=== PATIENT | male | born 1930 | race Caucasian/White ===

== ENCOUNTER 2019-06-19 16:24 | Inpatient (IN) | payer MEDICARE, OTHER ==
[2019-06-19 16:49] VITALS: BMI 31.9
--- NOTE | 2019-06-19 17:44 | PDOC ---
History of Present Illness - General Chief Complaint: Injury Stated Complaint: FELL YESTERDAY Time Seen by Provider: 06/19/19 16:41 - History of Present Illness Initial Comments: 06/19/19 17:36 Occitan speaking Unwitnessed fall yesterday at home onto back - found by Denies head injury LOC chest pain prior to fall Ongoing dizziness, leg weakness No fever, URI recently Valve replacement, 6 stents, pacemaker GERD, CHF, BPH coumadin, atorvastatin NKDA BP 158/62 (no hx HTN, DM) 5/5 strength LLE abrasion R forearm post thorax conjunctival pallor "low K" at PCP EKG CXR CBC CMP FOBT T/S Cardiac profile Coags UA Urine culture CT Head CT chest CT abd/pelvis w/contrast Past History - Past Medical History Allergies/Adverse Reactions: Allergies Allergy/AdvReac Type Severity Reaction Status Date / Time No Known Allergies Allergy Verified 06/19/19 16:43 Home Medications: Ambulatory Orders Alendronate Sodium [Binosto] 70 mg PO WEEKLY 06/19/19 Atorvastatin Calcium [Lipitor] 20 mg PO HS 06/19/19 Esomeprazole Magnesium 40 mg PO DAILY 06/19/19 Furosemide [Lasix -] 60 mg PO DAILY 06/19/19 Metoprolol Tartrate [Lopressor -] 25 mg PO DAILY 06/19/19 Potassium Chloride 20 meq PO BID 06/19/19 Ranolazine [Ranexa -] 1,000 mg PO BID 06/19/19 Tamsulosin HCl [Flomax] 0.4 mg PO DAILY 06/19/19 Warfarin Na [Coumadin] 3 mg PO DAILY 06/19/19 Cardiac Disorders: Yes COPD: No GI Disorders: Yes (gerd) Disorders: Yes (enlarged prostate) - Surgical History Cardiac Surgery: Yes - Suicide/Smoking/Psychosocial Hx Smoking History: Unknown if ever smoked *Physical Exam - Vital Signs Last Vital Signs Temp Pulse Resp BP Pulse Ox 99 F 94 H 26 H 158/62 94 L 06/19/19 16:47 06/19/19 16:47 06/19/19 16:47 06/19/19 16:47 06/19/19 16:47 ED Treatment Course - LABORATORY CBC & Chemistry Diagram: 06/19/19 18:15 06/19/19 18:15 Medical Decision Making - Medical Decision Making 08/30/19 22:44 Case discussed with ARI Rojo - patient admitted to Dr. Hanley, cardiac telemetry bed. *DC/Admit/Observation/Transfer Diagnosis at time of Disposition: Elevated INR Scapula fracture Qualifiers: Encounter type: initial encounter Scapula location: unspecified part of scapula Fracture type: closed Laterality: right Qualified Code(s): S42.101A - Fracture of unspecified part of scapula, right shoulder, initial encounter for closed fracture Rib fractures Qualifiers: Encounter type: initial encounter Rib fracture type: multiple ribs Fracture type: closed Laterality: right Qualified Code(s): S22.41XA - Multiple fractures of ribs, right side, initial encounter for closed fracture Cellulitis Qualifiers: Site of cellulitis: unspecified site Qualified Code(s): L03.90 - Cellulitis, unspecified - Discharge Dispostion Condition at time of disposition: Stable Decision to Admit order: Yes - Referrals Referrals: Chip Hunt MD [Primary Care Provider] - - Patient Instructions - Post Discharge Activity
[2019-06-19 18:33] LABS: BASO % 0.3 % (0-2.0); EOS % 0.5 % (0-4.5); HEMATOCRIT 31.1 % (35.4-49); HEMOGLOBIN 10.2 GM/dL (11.7-16.9); LYMPH % 13.2 % (8-40); MCH 27.6 pg (25.7-33.7); MCHC 32.7 g/dl (32.0-35.9); MEAN CELL VOLUME 84.4 fl (80-96); MEAN PLT VOLUME 9.2 fl (7.5-11.1); MONO % 7.4 % (3.8-10.2); NEUT % 78.6 % (42.8-82.8); PLATELET COUNT 171 K/MM3 (134-434); RBC 3.68 M/mm3 (4.00-5.60); RDW 16.2 % (11.9-15.9); WHITE BLOOD COUNT 7.8 K/mm3 (4.0-10.0)
[2019-06-19] MEDS ORDERED: ACETAMINOPHEN 1000 MG/100 ML VIAL (NON FORMULARY) IVPB ONE (18:37)
[2019-06-19 18:45] LABS: VENOUS PC02 44.9 mmHg (38-52); VENOUS PH 7.44 (7.31-7.41)
[2019-06-19 18:46] LABS: ACTIVATED PTT 49.4 SECONDS (25.2-36.5)
[2019-06-19 18:50] LABS: VENOUS PO2 < 49 mmHg (28-48)
--- NOTE | 2019-06-19 18:57 | PDOC ---
Documentation entered by Delmy Krause SCRIBE, acting as scribe for Oriana Alexis MD. Oriana Alexis MD: This documentation has been prepared by the Jimi child Lincy, SCRIBE, under my direction and personally reviewed by me in its entirety. I confirm that the documentation accurately reflects all work, treatment, procedures, and medical decision making performed by me. Attending Attestation - Resident Resident Name: Janine Hanan - ED Attending Attestation I have performed the following: I have examined & evaluated the patient, The case was reviewed & discussed with the resident, I agree w/resident's findings & plan, Exceptions are as noted - HPI HPI: 06/19/19 18:50 88 yo male h/o valve replacement, pacer, cad htn , gerd chf and bph here after had a fall yesterday. pt had unwitnessed fall. per his daughter at the bedside pt had fall yesterday. stats he felt lightheaded just prior. was c/o pain on his back and left side. he was evaluated at [facility], had cxr which was reportedly negative and discharge home. since then, his daughter noted that he had left arm redness and swelling. andwas c/o sever pain right flank and left arm. , right shoulder, no change to mental status. no n/v no abd pain. left arm is red, swollen, no fever or chills. pain worse wtih movement. states he hasongoign bilat leg weakness which may have caused his fall. - Physicial Exam PE: 06/19/19 18:53 awake alert head atraumatic. lungs clear bilat heart clicking heard, no mrg. abd soft nt. right flank with large abrasion base shoulder blade superficial, right flank eccymosis. ext: right shoulder ttp, decreased rom secondary to pain. left upper ext upper arm and forearm cellulitis red, swollen,warm and edematous. pelvis stable. bilat legs atraumatic. nontender. no midline spinal tenderness. no mildlien cervical spine tenderness. - Medical Decision Making 06/19/19 18:55 88 yo male h/o mult med problesm pacer cad valve replacement on bloood thinners here for left arm pain and flank pain following fall. left arm cellulitis appearing. per pt daughter he did have an injection in that left arm [address] taylor. right flank eccymosis and pain. right lower rib pain. differnetial ich, right rib fractures, rp bleed, renal injury, left arm cellulitis.plan ct head c/a/p. will likley require admission for left arm cellulitis. cultures abx. rectal temp 98.4 06/19/19 19:14 signed out to oncoming attending dr aceves, awaiting ct results. will require admission. Heart Score/ECG Review #1 General ECG Interpretation: Normal Rate, Normal Intervals, No acute ischemic changes Compared to previous ECG there are: Other (paced, TWI III, AVF.)
[2019-06-19 18:59] LABS: PROTHROMBIN TIME (PATIENT) 61.2 SEC (9.7-13.0)
[2019-06-19] MEDS ORDERED: PIPERACILLIN/TAZOB 2.25 GM 2.25 GM in DEXTROSE 5%-WATER - 50 ML IVPB ONE (19:06)
[2019-06-19] MEDS ORDERED: VANCOMYCIN 1 GM in D5W (PRE-DOCKED) 1,000 MG/250 ML IVPB ONE (19:06)
[2019-06-19 19:07] LABS: ALBUMIN 3.2 g/dl (3.4-5.0); ALK PHOS 59 U/L (45-117); ANION GAP 6 MMOL/L (8-16); BILIRUBIN,TOTAL 0.5 mg/dL (0.2-1); CALCIUM 8.7 mg/dL (8.5-10.1); CHLORIDE 98 mmol/L (98-107); CO2 31 mmol/L (21-32); CREATININE 1.2 mg/dL (0.55-1.3); GLUCOSE,RANDOM 132 mg/dL (74-106); POTASSIUM 3.8 mmol/L (3.5-5.1); SGOT/AST 39 U/L (15-37); SGPT/ALT 20 U/L (13-61); SODIUM 136 mmol/L (136-145); TOT PROT 5.8 g/dl (6.4-8.2)
[2019-06-19 19:08] LABS: INR 5.1 (0.83-1.09)
[2019-06-19] MEDS ORDERED: PHYTONADIONE 5 MG TABLET PO ONE (19:17)
[2019-06-19] MEDS ORDERED: PIPERACILLIN/TAZOB 2.25 GM 2.25 GM/50 ML BAG IVPB ONE (19:42)
[2019-06-19] MEDS ORDERED: VANCOMYCIN 1 GRAM (PRE-DOCKED) 1,000 MG/250 ML BAG IVPB ONE (19:42)
[2019-06-19] MEDS ORDERED: PHYTONADIONE 5 MG TABLET ONE (19:45)
[2019-06-19 20:37] LABS: PH,URINE 5.5 (5.0-8.0); URINE APPEARANCE CLOUDY; URINE BILIRUBIN NEGATIVE (NEGATIVE); URINE COLOR YELLOW; URINE GLUCOSE (UA) NEGATIVE (NEGATIVE); URINE KETONE NEGATIVE (NEGATIVE); URINE LEUK ESTERASE NEGATIVE (NEGATIVE); URINE NITRITE NEGATIVE (NEGATIVE); URINE PROTEIN NEGATIVE (NEGATIVE); URINE UROBILINOGEN 0.2 mg/dL (0.2-1.0)
--- NOTE | 2019-06-19 20:44 | PDOC ---
*Physical Exam - Vital Signs Last Vital Signs Temp Pulse Resp BP Pulse Ox 98.3 F 94 H 26 H 158/62 97 06/19/19 18:00 06/19/19 16:47 06/19/19 16:47 06/19/19 16:47 06/19/19 16:49 ED Treatment Course - LABORATORY CBC & Chemistry Diagram: 06/20/19 07:00 06/20/19 07:00 - ADDITIONAL ORDERS Additional order review: Laboratory Results 06/19/19 06/19/19 06/19/19 20:15 18:23 18:15 PT with INR INR PTT (Actin FS) VBG pH 7.44 H POC VBG pCO2 44.9 POC VBG pO2 < 49 H VBG HCO3 29.6 H VBG O2 Sat (Ko) 59.4 L VBG Base Excess 5.2 H Sodium Potassium Chloride Carbon Dioxide Anion Gap BUN Creatinine Est GFR (CKD-EPI)AfAm Est GFR (CKD-EPI)NonAf Random Glucose Lactic Acid 2.1 H Calcium Total Bilirubin AST ALT Alkaline Phosphatase Creatine Kinase Creatine Kinase Index CK-MB (CK-2) Troponin I Total Protein Albumin Urine Color Yellow Urine Appearance Cloudy Urine pH 5.5 Ur Specific Tilly 1.015 Urine Protein Negative Urine Glucose (UA) Negative Urine Ketones Negative Urine Blood Negative Urine Nitrite Negative Urine Bilirubin Negative Urine Urobilinogen 0.2 Ur Leukocyte Esterase Negative Blood Type Antibody Screen 06/19/19 06/19/19 06/19/19 18:15 18:15 18:15 PT with INR Cancelled INR Cancelled PTT (Actin FS) VBG pH POC VBG pCO2 POC VBG pO2 VBG HCO3 VBG O2 Sat (Ko) VBG Base Excess Sodium 136 Potassium 3.8 Chloride 98 Carbon Dioxide 31 Anion Gap 6 L BUN 26.0 H Creatinine 1.2 Est GFR (CKD-EPI)AfAm 61.76 Est GFR (CKD-EPI)NonAf 53.29 Random Glucose 132 H Lactic Acid Calcium 8.7 Total Bilirubin 0.5 AST 39 H ALT 20 Alkaline Phosphatase 59 Creatine Kinase 421 H Creatine Kinase Index 1.4 CK-MB (CK-2) 6.2 H Troponin I < 0.02 Total Protein 5.8 L Albumin 3.2 L Urine Color Urine Appearance Urine pH Ur Specific Tilly Urine Protein Urine Glucose (UA) Urine Ketones Urine Blood Urine Nitrite Urine Bilirubin Urine Urobilinogen Ur Leukocyte Esterase Blood Type O POSITIVE Antibody Screen Negative 06/19/19 18:15 PT with INR 61.20 H INR 5.10 H* PTT (Actin FS) 49.4 H VBG pH POC VBG pCO2 POC VBG pO2 VBG HCO3 VBG O2 Sat (Ko) VBG Base Excess Sodium Potassium Chloride Carbon Dioxide Anion Gap BUN Creatinine Est GFR (CKD-EPI)AfAm Est GFR (CKD-EPI)NonAf Random Glucose Lactic Acid Calcium Total Bilirubin AST ALT Alkaline Phosphatase Creatine Kinase Creatine Kinase Index CK-MB (CK-2) Troponin I Total Protein Albumin Urine Color Urine Appearance Urine pH Ur Specific Tilly Urine Protein Urine Glucose (UA) Urine Ketones Urine Blood Urine Nitrite Urine Bilirubin Urine Urobilinogen Ur Leukocyte Esterase Blood Type Antibody Screen 06/19/19 18:15 RBC 3.68 L MCV 84.4 MCHC 32.7 RDW 16.2 H MPV 9.2 Neutrophils % 78.6 Lymphocytes % 13.2 Monocytes % 7.4 Eosinophils % 0.5 Basophils % 0.3 - Medications Given in the ED: ED Medications Discontinued Medications Generic Name Dose Route Start Last Admin Trade Name Dinoq PRN Reason Stop Dose Admin Acetaminophen 1,000 mg 06/19/19 18:37 06/19/19 18:41 Ofirmev Injection - IVPB 06/19/19 18:38 1,000 mg ONCE ONE Administration Piperacillin Sod/Tazobactam 50 mls @ 100 mls/hr 06/19/19 19:06 06/19/19 20:00 Sod 2.25 gm/ Dextrose IVPB 06/19/19 19:35 100 mls/hr ONCE ONE Administration Protocol Phytonadione 10 mg 06/19/19 19:17 06/19/19 20:00 Mephyton - PO 06/19/19 19:18 10 mg ONCE ONE Administration Medical Decision Making - Medical Decision Making 06/19/19 20:43 Pt with INR that is double what it should be; I received pt on signout and we administered Vit K PO; also head CT just came back as normal. Pt has multiple fractures from his fall a couple days back; he will be admitted. Ortho is aware. *DC/Admit/Observation/Transfer Diagnosis at time of Disposition: Elevated INR, Cellulitis Scapula fracture Qualifiers: Encounter type: initial encounter Scapula location: unspecified part of scapula Fracture type: closed Laterality: right Qualified Code(s): S42.101A - Fracture of unspecified part of scapula, right shoulder, initial encounter for closed fracture Rib fractures Qualifiers: Encounter type: initial encounter Rib fracture type: multiple ribs Fracture type: closed Laterality: right Qualified Code(s): S22.41XA - Multiple fractures of ribs, right side, initial encounter for closed fracture - Discharge Dispostion Condition at time of disposition: Stable Decision to Admit order: Yes - Referrals - Patient Instructions - Post Discharge Activity
[2019-06-19] MEDS ORDERED: morphine CARPU-JECT 2 MG/1 ML DISP.SYRIN IVPUSH ONE ×2 (21:30→22:58)
[2019-06-19] MEDS ORDERED: MORPHINE SULFATE 2 MG/ML VIAL ONE ×2 (21:54→23:12)
--- NOTE | 2019-06-19 23:24 | HP ---
Admitting History and Physical - Primary Care Physician PCP: Chip Hunt - Admission Chief Complaint: Unwitnessed Fall, Dizziness, Leg Weakness History of Present Illness: This is a 88 y/o man with a PMHx of CAD s/p CABG, Stents x6, CHF, Valve Replacement, GERD, BPH. Who presents to the ED with an unwitnessed fall x yesterday and generalized weakness. Per ED records: per his daughter at the bedside pt had fall yesterday. states he felt lightheaded just prior. was c/o pain on his back and left side. he was evaluated at [facility], had cxr which was reportedly negative and discharged home. since then, his daughter noted that he had left arm redness and swelling, pain worse with movement, right flank and right shoulder pain. Per pts daughter he did have an injection in that left arm [address] Hunt. She denies change to his mental status. Patient denies fever or chills, CP, palpitations, AP, N/V/D. History Source: Patient, Family Member Limitations to Obtaining History: Language Barrier (Sinhala Nurse at bedside, translated) - Past Medical History Cardiovascular: Yes: CAD, CHF Gastrointestinal: Yes: GERD Renal/: Yes: BPH - Past Surgical History Past Surgical History: Yes: CABG, Permanent Pacemaker, Valve Replacement - Smoking History Smoking history: Unknown if ever smoked - Alcohol/Substance Use Hx Alcohol Use: No History of Substance Use: reports: None - Social History Usual Living Arrangement: Yes: With Spouse ADL: Family Assistance History of Recent Travel: No Home Medications - Allergies Allergies/Adverse Reactions: Allergies Allergy/AdvReac Type Severity Reaction Status Date / Time No Known Allergies Allergy Verified 06/19/19 16:43 - Home Medications Home Medications: Ambulatory Orders Alendronate Sodium [Binosto] 70 mg PO WEEKLY 06/19/19 Atorvastatin Calcium [Lipitor] 20 mg PO HS 06/19/19 Esomeprazole Magnesium 40 mg PO DAILY 06/19/19 Furosemide [Lasix -] 60 mg PO DAILY 06/19/19 Metoprolol Tartrate [Lopressor -] 25 mg PO DAILY 06/19/19 Potassium Chloride 20 meq PO BID 06/19/19 Ranolazine [Ranexa -] 1,000 mg PO BID 06/19/19 Tamsulosin HCl [Flomax] 0.4 mg PO DAILY 06/19/19 Warfarin Na [Coumadin] 3 mg PO DAILY 06/19/19 Family Disease History - Family Disease History Family History: Unable to Obtain Review of Systems - Review of Systems Constitutional: reports: Malaise, Weakness Eyes: reports: No Symptoms HENT: reports: No Symptoms Neck: reports: No Symptoms Cardiovascular: reports: No Symptoms Respiratory: reports: No Symptoms Gastrointestinal: reports: No Symptoms Genitourinary: reports: No Symptoms Breasts: reports: No Symptoms Reported Musculoskeletal: reports: Extremity Pain, Joint Pain, Muscle Weakness Integumentary: reports: Erythema Neurological: reports: Dizziness, Unsteady Gait, Weakness Endocrine: reports: No Symptoms Hematology/Lymphatic: reports: Easily Bruised Psychiatric: reports: No Symptoms Pain Intensity: 5 Physical Examination Vital Signs: Vital Signs Temperature 98.3 F 06/19/19 18:00 Pulse Rate 86 06/19/19 22:45 Respiratory Rate 22 H 06/19/19 22:45 Blood Pressure 155/65 06/19/19 22:45 O2 Sat by Pulse Oximetry (%) 95 06/19/19 22:45 Constitutional: Yes: Well Nourished, No Distress, Calm, Obese Eyes: Yes: WNL, Conjunctiva Clear, EOM Intact, PERRL HENT: Yes: WNL, Atraumatic, Normocephalic Neck: Yes: WNL, Supple, Trachea Midline Cardiovascular: Yes: Regular Rate and Rhythm, S1, S2, Other (Click) Respiratory: Yes: WNL, Regular, CTA Bilaterally Gastrointestinal: Yes: WNL, Normal Bowel Sounds, Soft, Abdomen, Obese ...Rectal Exam: Yes: Deferred Renal/: Yes: WNL Breast(s): Yes: WNL Musculoskeletal: Yes: Muscle Weakness, Other (sling to R- arm DROM) Extremities: Yes: Erythema (swelling to LUE) Edema: No Peripheral Pulses WNL: Yes Integumentary: Yes: Bruising (eccyhmotic to right flank), Erythema Neurological: Yes: Alert, Oriented, Cran Nerves II-XII Intact ...Motor Strength: WNL Psychiatric: Yes: Alert, Oriented Labs: CBC, BMP 06/19/19 18:15 06/19/19 18:15 Laboratory Results - last 24 hr 06/19/19 06/19/19 06/19/19 18:15 18:15 18:15 WBC 7.8 RBC 3.68 L Hgb 10.2 L Hct 31.1 L MCV 84.4 MCH 27.6 MCHC 32.7 RDW 16.2 H Plt Count 171 MPV 9.2 Absolute Neuts (auto) 6.1 Neutrophils % 78.6 Lymphocytes % 13.2 Monocytes % 7.4 Eosinophils % 0.5 Basophils % 0.3 Nucleated RBC % 0 PT with INR 61.20 H INR 5.10 H* PTT (Actin FS) 49.4 H VBG pH POC VBG pCO2 POC VBG pO2 VBG HCO3 VBG O2 Sat (Ko) VBG Base Excess Sodium 136 Potassium 3.8 Chloride 98 Carbon Dioxide 31 Anion Gap 6 L BUN 26.0 H Creatinine 1.2 Est GFR (CKD-EPI)AfAm 61.76 Est GFR (CKD-EPI)NonAf 53.29 Random Glucose 132 H Lactic Acid Calcium 8.7 Total Bilirubin 0.5 AST 39 H ALT 20 Alkaline Phosphatase 59 Creatine Kinase 421 H Creatine Kinase Index 1.4 CK-MB (CK-2) 6.2 H Troponin I < 0.02 Total Protein 5.8 L Albumin 3.2 L Urine Color Urine Appearance Urine pH Ur Specific Arvilla Urine Protein Urine Glucose (UA) Urine Ketones Urine Blood Urine Nitrite Urine Bilirubin Urine Urobilinogen Ur Leukocyte Esterase Stool Occult Blood Blood Type Antibody Screen 06/19/19 06/19/19 06/19/19 18:15 18:15 18:15 WBC RBC Hgb Hct MCV MCH MCHC RDW Plt Count MPV Absolute Neuts (auto) Neutrophils % Lymphocytes % Monocytes % Eosinophils % Basophils % Nucleated RBC % PT with INR Cancelled INR Cancelled PTT (Actin FS) VBG pH 7.44 H POC VBG pCO2 44.9 POC VBG pO2 < 49 H VBG HCO3 29.6 H VBG O2 Sat (Ko) 59.4 L VBG Base Excess 5.2 H Sodium Potassium Chloride Carbon Dioxide Anion Gap BUN Creatinine Est GFR (CKD-EPI)AfAm Est GFR (CKD-EPI)NonAf Random Glucose Lactic Acid Calcium Total Bilirubin AST ALT Alkaline Phosphatase Creatine Kinase Creatine Kinase Index CK-MB (CK-2) Troponin I Total Protein Albumin Urine Color Urine Appearance Urine pH Ur Specific [place] Urine Protein Urine Glucose (UA) Urine Ketones Urine Blood Urine Nitrite Urine Bilirubin Urine Urobilinogen Ur Leukocyte Esterase Stool Occult Blood Blood Type O POSITIVE Antibody Screen Negative 06/19/19 06/19/19 06/19/19 18:23 20:15 20:33 WBC RBC Hgb Hct MCV MCH MCHC RDW Plt Count MPV Absolute Neuts (auto) Neutrophils % Lymphocytes % Monocytes % Eosinophils % Basophils % Nucleated RBC % PT with INR INR PTT (Actin FS) VBG pH POC VBG pCO2 POC VBG pO2 VBG HCO3 VBG O2 Sat (Ko) VBG Base Excess Sodium Potassium Chloride Carbon Dioxide Anion Gap BUN Creatinine Est GFR (CKD-EPI)AfAm Est GFR (CKD-EPI)NonAf Random Glucose Lactic Acid 2.1 H Calcium Total Bilirubin AST ALT Alkaline Phosphatase Creatine Kinase Creatine Kinase Index CK-MB (CK-2) Troponin I Total Protein Albumin Urine Color Yellow Urine Appearance Cloudy Urine pH 5.5 Ur Specific [place] 1.015 Urine Protein Negative Urine Glucose (UA) Negative Urine Ketones Negative Urine Blood Negative Urine Nitrite Negative Urine Bilirubin Negative Urine Urobilinogen 0.2 Ur Leukocyte Esterase Negative Stool Occult Blood Trace Blood Type Antibody Screen 06/20/19 00:45 WBC RBC Hgb Hct MCV MCH MCHC RDW Plt Count MPV Absolute Neuts (auto) Neutrophils % Lymphocytes % Monocytes % Eosinophils % Basophils % Nucleated RBC % PT with INR INR PTT (Actin FS) VBG pH POC VBG pCO2 POC VBG pO2 VBG HCO3 VBG O2 Sat (Ko) VBG Base Excess Sodium Potassium Chloride Carbon Dioxide Anion Gap BUN Creatinine Est GFR (CKD-EPI)AfAm Est GFR (CKD-EPI)NonAf Random Glucose Lactic Acid Calcium Total Bilirubin AST ALT Alkaline Phosphatase Creatine Kinase Creatine Kinase Index CK-MB (CK-2) Troponin I 0.02 Total Protein Albumin Urine Color Urine Appearance Urine pH Ur Specific [place] Urine Protein Urine Glucose (UA) Urine Ketones Urine Blood Urine Nitrite Urine Bilirubin Urine Urobilinogen Ur Leukocyte Esterase Stool Occult Blood Blood Type Antibody Screen Intake & Output 06/17/19 06/18/19 06/19/19 06/20/19 23:59 23:59 23:59 23:59 Intake Total 200 Output Total 250 Balance -50 Weight 76.657 kg Imaging - Results Chest X-ray: Image Reviewed X-ray: Image Reviewed Cat Scan: Image Reviewed EKG: Image Reviewed Problem List - Problems (1) Near syncope Code(s): R55 - SYNCOPE AND COLLAPSE (2) Supratherapeutic INR Code(s): R79.1 - ABNORMAL COAGULATION PROFILE (3) Cellulitis Code(s): L03.90 - CELLULITIS, UNSPECIFIED Qualifiers: Site of cellulitis: unspecified site Qualified Code(s): L03.90 - Cellulitis , unspecified (4) Fall at home Code(s): W19.XXXA - UNSPECIFIED FALL, INITIAL ENCOUNTER; Y92.009 - UNSP PLACE IN UNSP [facility]ENCE [facility] (5) CAD (coronary artery disease) Code(s): I25.10 - ATHSCL HEART DISEASE OF [place] CORONARY ARTERY W/O ANG PCTRS Assessment/Plan This is a 88 y/o man with a PMHx of CAD s/p CABG, Stents x6, CHF, Valve Replacement, GERD, BPH. Admitted to Telemetry for Near Syncope, Unwitnessed Fall , Supratherapeutic INR, Rib Fxs, Scapula Fx for further evaluation of their emergent condition. Plan: 1. Near Syncope Admit to Telemetry Continue cardiac monitoring Head CT- neg ICH, small chronic L- cerebellar infarct Serial Enzymes neg x1, will trend Check Mg, Phos levels EKG- reviewed Appreciate Cardiology consult Neuro checks Fall Precautions 2. Supratherapeutic INR Vit K given in ED Hx Valve Replacement Series INR Hold Coumadin for now Restart Coumadin when INR goal (2.5-3.5) Stool Occult- trace Monitor CBC 3. Unwitnessed fall Chest Xray image reviewed CT Chest- Acute fx R fifth rib, acute/subacute R fourth rib, chronic displaced fx sixth rib Appreciate Ortho consult- Scapula fx Sling Incentive Spirometer PT eval Fall Precautions Tylenol prn Monitor vitals O2 Neurovascular checks 4. Cellulitis Blood Cultures-pending No Leukocytosis, no Neutrophilia, nonpurulent Vancomycin and Zosyn given in ED Will start on Cefazolin in am Appreciate ID consult Monitor CBC Monitor vitals 5. CAD s/p CABG s/p Stents 6. CHF stable no acute flare Continue home meds with parameters 7. GERD Continue PPI 8. BPH Continue Flomax FEN PO fluids as tolerated Replete lytes prn Low Na Diet DVT ppx OOB SCDs Hold AC secondary to supratherapeutic INR Dispo: Requires Inpatient Care Visit type - Emergency Visit Emergency Visit: Yes ED Registration Date: 06/19/19 Care time: The patient presented to the Emergency Department on the above date and was hospitalized for further evaluation of their emergent condition. - New Patient This patient is new to me today: Yes Date on this admission: 06/19/19 - Critical Care Critical Care patient: No
[2019-06-20] MEDS: PANTOPRAZOLE 40 MG TABLET (FP) PO SCH (06:52)
[2019-06-20 08:13] LABS: BASO % 0.2 % (0-2.0); HEMATOCRIT 29.7 % (35.4-49); HEMOGLOBIN 9.9 GM/dL (11.7-16.9); LYMPH % 14.6 % (8-40); MCH 27.9 pg (25.7-33.7); MCHC 33.3 g/dl (32.0-35.9); MONO % 7.5 % (3.8-10.2); NEUT % 76.7 % (42.8-82.8); PLATELET COUNT 172 K/MM3 (134-434); RBC 3.54 M/mm3 (4.00-5.60); RDW 16.5 % (11.9-15.9); WHITE BLOOD COUNT 7.3 K/mm3 (4.0-10.0)
[2019-06-20 08:14] LABS: INR 3.67 (0.83-1.09); PROTHROMBIN TIME (PATIENT) 43.9 SEC (9.7-13.0)
[2019-06-20 08:17] LABS: ANION GAP 7 MMOL/L (8-16); BLOOD UREA NITROGEN 23.2 mg/dL (7-18); CALCIUM 8.4 mg/dL (8.5-10.1); CHLORIDE 95 mmol/L (98-107); CO2 33 mmol/L (21-32); GLUCOSE,RANDOM 108 mg/dL (74-106); MAGNESIUM 1.7 mg/dL (1.8-2.4); PHOSPHOROUS 3.7 mg/dL (2.5-4.9); SODIUM 135 mmol/L (136-145)
--- NOTE | 2019-06-20 08:54 | EKG ---
Test Reason : Blood Pressure : / mmHG Vent. Rate : 093 BPM Atrial Rate : 093 BPM P-R Int : 168 ms QRS Dur : 118 ms QT Int : 408 ms P-R-T Axes : 028 100 -14 degrees QTc Int : 507 ms Atrial-sensed ventricular-paced rhythm ABNORMAL ECG WHEN COMPARED WITH ECG OF 02-JUL-2010 21:31, VENT. RATE HAS INCREASED BY 29 BPM Confirmed by JESUS WARREN MD ([id number]) on 06/20/2019 8:54:17 AM Referred By: Confirmed By:JESUS WARREN MD
--- NOTE | 2019-06-20 09:29 | PN ---
Progress Note (short form) - Note Progress Note: Pt seen and examined. He is an 88 year old, right hand dominant male patient 2 days s/p mechanical fall. He c/o pain in the right posterior shoulder, and the right flank. Not c/o SOB or difficulty breathing. PE No SOB, on NC O2 + mildly tender to palpation over the right flank, around T5-6-7 + very tender over the right inferior border of the posterior scapula RUE NVI with good ROM throughout, except the shoulder X-rays and CT scans Show acute right rib fractures at T4-T5, and a chronic old rib fx at T6 Also show an acute fracture, non displaced, at the inferior border of the right scapular body Imp 88 yo M 2 days s/p fall with an acute fx, nondisplaced of the right scapula, and acute fxs of the right T4 and T5 ribs. Rec No surgery needed Shoulder sling Symptomatic relief Can DC/transfer from an orthopedic pov
[2019-06-20] MEDS ORDERED: ceFAZolin SODIUM 1 GM VIAL ONE ×2 (09:33→17:57)
[2019-06-20] MEDS ORDERED: DEXTROSE 5%-WATER - 50 ML IVPB ONE ×2 (09:34→17:57)
[2019-06-20] MEDS: RANOLAZINE E.R. 1,000 MG TABLET (FP) PO SCH ×2 (09:43→21:27)
[2019-06-20] MEDS: POTASSIUM CHLORIDE TABS 20 MEQ TABLET.ER (FP) PO SCH (09:43)
[2019-06-20] MEDS: TAMSULOSIN HCL 0.4 MG CAP PO SCH (09:44)
[2019-06-20] MEDS: METOPROLOL TARTRATE 25 MG TABLET (FP) PO SCH (09:44)
[2019-06-20] MEDS: FUROSEMIDE 20 MG TABLET (FP) PO SCH (09:45)
[2019-06-20] MEDS: CEFAZOLIN 1 GM in DEXTROSE 5%-WATER - 50 ML IVPB SCH ×2 (09:46→17:59)
[2019-06-20] MEDS ORDERED: PATIENT'S OWN MEDICATION (NON-FORMULARY) (Potassium Chloride [Potassium Chloride] 20 MEQ) PO SCH (10:00)
--- NOTE | 2019-06-20 10:49 | CON.CARD ---
Cardiology Consult (text) - Consultation Consultation Note: cc: fall hpi: 88 m hx cad s/p pci, cabg, mech avr, ppm, chf, here s/p fall. Pt was at home, felt lightheaded and fell. Denies loc. No cp sob palps pnd orthopnea le edema. pmh: per hpi psh: per hpi fam: nc ros: per hpi; right sided pain s/p fall; all others nl social: no tob meds: Home Medications Medication Instructions Recorded Alendronate Sodium [Binosto] 70 mg PO WEEKLY 06/19/19 Atorvastatin Calcium [Lipitor] 20 mg PO HS 06/19/19 Esomeprazole Magnesium 40 mg PO DAILY 06/19/19 Furosemide [Lasix -] 60 mg PO DAILY 06/19/19 Metoprolol Tartrate [Lopressor -] 25 mg PO DAILY 06/19/19 Potassium Chloride 20 meq PO BID 06/19/19 Ranolazine [Ranexa -] 1,000 mg PO BID 06/19/19 Tamsulosin HCl [Flomax] 0.4 mg PO DAILY 06/19/19 Warfarin Na [Coumadin] 3 mg PO DAILY 06/19/19 pe: Vital Signs Period Temp Pulse Resp BP Sys/Lal Pulse Ox Last 24 Hr 98.3 F-99 F 74-94 16-26 114-158/56-66 94-97 nad no [facility] no mrg cta bl nl eff aao3 no le e/c/c abd nt nd pos bs no jaundice diaphoresis pos dp pt no carotid bruits Laboratory Last Values WBC 7.3 K/mm3 (4.0-10.0) 06/20/19 07:00 RBC 3.54 M/mm3 (4.00-5.60) L 06/20/19 07:00 Hgb 9.9 GM/dL (11.7-16.9) L 06/20/19 07:00 Hct 29.7 % (35.4-49) L 06/20/19 07:00 MCV 84.0 fl (80-96) 06/20/19 07:00 MCH 27.9 pg (25.7-33.7) 06/20/19 07:00 MCHC 33.3 g/dl (32.0-35.9) 06/20/19 07:00 RDW 16.5 % (11.9-15.9) H 06/20/19 07:00 Plt Count 172 K/MM3 (134-434) 06/20/19 07:00 MPV 9.0 fl (7.5-11.1) 06/20/19 07:00 Absolute Neuts (auto) 5.6 K/mm3 (1.5-8.0) 06/20/19 07:00 Neutrophils % 76.7 % (42.8-82.8) 06/20/19 07:00 Lymphocytes % 14.6 % (8-40) 06/20/19 07:00 Monocytes % 7.5 % (3.8-10.2) 06/20/19 07:00 Eosinophils % 1.0 % (0-4.5) D 06/20/19 07:00 Basophils % 0.2 % (0-2.0) 06/20/19 07:00 Nucleated RBC % 0 % (0-0) 06/20/19 07:00 PT with INR 43.90 SEC (9.7-13.0) H 06/20/19 07:00 INR 3.67 (0.83-1.09) H 06/20/19 07:00 PTT (Actin FS) 49.4 SECONDS (25.2-36.5) H 06/19/19 18:15 VBG pH 7.44 (7.31-7.41) H 06/19/19 18:15 POC VBG pCO2 44.9 mmHg (38-52) 06/19/19 18:15 POC VBG pO2 < 49 mmHg (28-48) H 06/19/19 18:15 VBG HCO3 29.6 mmol/L (23-29) H 06/19/19 18:15 VBG O2 Sat (Ko) 59.4 % (70-80) L 06/19/19 18:15 VBG Base Excess 5.2 meq/l (-2-2) H 06/19/19 18:15 Sodium 135 mmol/L (136-145) L 06/20/19 07:00 Potassium 3.0 mmol/L (3.5-5.1) L 06/20/19 07:00 Chloride 95 mmol/L (98-107) L 06/20/19 07:00 Carbon Dioxide 33 mmol/L (21-32) H 06/20/19 07:00 Anion Gap 7 MMOL/L (8-16) L 06/20/19 07:00 BUN 23.2 mg/dL (7-18) H 06/20/19 07:00 Creatinine 1.0 mg/dL (0.55-1.3) 06/20/19 07:00 Est GFR (CKD-EPI)AfAm 77.00 06/20/19 07:00 Est GFR (CKD-EPI)NonAf 66.43 06/20/19 07:00 Random Glucose 108 mg/dL (74-106) H 06/20/19 07:00 Hemoglobin A1c % 5.2 % (4.2-6.3) 06/20/19 07:00 Lactic Acid 1.3 mmol/L (0.4-2.0) 06/20/19 07:00 Calcium 8.4 mg/dL (8.5-10.1) L 06/20/19 07:00 Phosphorus 3.7 mg/dL (2.5-4.9) 06/20/19 07:00 Magnesium 1.7 mg/dL (1.8-2.4) L 06/20/19 07:00 Total Bilirubin 0.5 mg/dL (0.2-1) 06/19/19 18:15 AST 39 U/L (15-37) H 06/19/19 18:15 ALT 20 U/L (13-61) 06/19/19 18:15 Alkaline Phosphatase 59 U/L (45-117) 06/19/19 18:15 Creatine Kinase 421 U/L (26-308) H 06/19/19 18:15 Creatine Kinase Index 1.4 % (0.0-5.0) 06/19/19 18:15 CK-MB (CK-2) 6.2 ng/mL (0.5-3.6) H 06/19/19 18:15 Troponin I < 0.02 ng/ml (0.00-0.05) 06/20/19 07:00 Total Protein 5.8 g/dl (6.4-8.2) L 06/19/19 18:15 Albumin 3.2 g/dl (3.4-5.0) L 06/19/19 18:15 Urine Color Yellow 06/19/19 20:15 Urine Appearance Cloudy 06/19/19 20:15 Urine pH 5.5 (5.0-8.0) 06/19/19 20:15 Ur Specific [place] 1.015 (1.010-1.035) 06/19/19 20:15 Urine Protein Negative (NEGATIVE) 06/19/19 20:15 Urine Glucose (UA) Negative (NEGATIVE) 06/19/19 20:15 Urine Ketones Negative (NEGATIVE) 06/19/19 20:15 Urine Blood Negative (NEGATIVE) 06/19/19 20:15 Urine Nitrite Negative (NEGATIVE) 06/19/19 20:15 Urine Bilirubin Negative (NEGATIVE) 06/19/19 20:15 Urine Urobilinogen 0.2 mg/dL (0.2-1.0) 06/19/19 20:15 Ur Leukocyte Esterase Negative (NEGATIVE) 06/19/19 20:15 Stool Occult Blood Trace (NEGATIVE) 06/19/19 20:33 Blood Type O POSITIVE 06/19/19 18:15 Antibody Screen Negative 06/19/19 18:15 tele: sr, as-learning and development manager ecg: sr, as-learning and development manager ct chest: no chf, right rib and scapula fx a/p: 88 m hx cad s/p pci, cabg, mech avr, ppm, chf, here s/p fall. presyncope, fall: -no signs acs, chf -pacemaker with nl fcn on tele -check echo, monitor tele, check ortho vitals -neuro eval cad: -no signs acs -cont statin, ranexa, bb mech avr: -continue coumadin per INR ppm: -pacemaker with nl fcn on ecg/tele chronic chf: -check echo -vol stable, cont po lasix
--- NOTE | 2019-06-20 13:24 | PN ---
Progress Note (short form) - Note Progress Note: \ID CONSULT DICTATED L UE CELLULITIS R/O DVT NON-DISPLACED R SCAPULA FRACTURE/ RIB FRACTURE CONTINUE CEFAZOLIN DOPPLER L UE R/O DVT
--- NOTE | 2019-06-20 16:31 | CONS ---
DATE OF CONSULTATION: DATE OF DICTATION: 06/20/2019 HISTORY OF PRESENT ILLNESS: The patient is an 88-year-old male evaluated for possible cellulitis of the left upper extremity. History was obtained via production assembly supervisor as he is German speaking. According to his daughter, he had received an injection at his primary physician's office on Monday, June 17, 2019. He subsequently developed diffuse pain and swelling of the left upper extremity. In the interim, he had fallen at home and was found on the floor. He was taken to [facility] emergency room where he was evaluated and discharged. He was brought to [facility] where a CT scan of the chest was performed and showed a right rib fracture and a non-displaced right scapular fracture. He has been afebrile with a normal white blood cell count. No other injury reported. A CT scan of the head was negative for new infarct or bleed. PAST MEDICAL HISTORY: Positive for CHF, BPH, coronary artery disease, gastroesophageal reflux disease. PAST SURGICAL HISTORY: Status post aortic valve replacement and permanent pacemaker. ALLERGIES: No known allergies. MEDICATIONS: Tylenol, cefazolin, Lipitor, Lasix, metoprolol, morphine. SOCIAL HISTORY: He lives at home with family members. Nonsmoker, nondrinker. LABORATORY DATA: White count 7.3, hematocrit 29.7, platelet count 172, creatinine 1.0. Urine leukocyte esterase negative. REVIEW OF SYSTEMS: Neurologic: No loss of consciousness, seizure activity, focal weakness. Cardiac: Negative for chest pain or palpitations. Respiratory: Negative for cough or sputum production. Gastrointestinal: Negative for vomiting or diarrhea. Genitourinary: Negative for urinary tract infection. PHYSICAL EXAMINATION: General: The patient is awake and alert, in moderate distress secondary to right shoulder pain. Vital Signs: Temperature 98.6, blood pressure 156/66, pulse 74, respirations 18 per minute. HEENT: Sclerae anicteric. Heart: Heart sounds S1, S2. Lungs: Clear. Abdomen: Obese, soft and nontender. Extremities: There is diffuse swelling of the left upper extremity from the deltoid area to the wrist. There is some faint erythema. No open wounds noted. It is slightly tender to palpation. Thorax: Examination of the right posterior thorax shows contusions. IMPRESSION: 1. Cellulitis of the left upper extremity, possibly secondary to intramuscular injection. 2. Rule out deep vein thrombosis. 3. Status post fall with nondisplaced scapular fracture and right rib fracture. PLAN: 1. Await cultures. 2. Continue empiric cefazolin. 3. Doppler exam, left upper extremity; rule out DVT. Thank you for the kind referral. GAIL DELONG M.D. [id number]
[2019-06-20] MEDS ORDERED: POTASSIUM CHLORIDE TABS 20 MEQ TABLET.ER (FP) PO ONE (19:40)
--- NOTE | 2019-06-20 21:25 | PN ---
Progress Note, Physician History of Present Illness: Family stating that pt has multiple complaints including constipation/tinnitus and ?change in mental status wc mostly occurs at end of day Pt also w/ pain - Current Medication List Current Medications: Active Medications Atorvastatin Calcium (Lipitor -) 20 mg PO HS [facility] Furosemide (Lasix -) 60 mg PO DAILY [facility] Last Admin: 06/20/19 09:45 Dose: 60 mg Cefazolin Sodium 1 gm/ (Dextrose) 50 mls @ 100 mls/hr IVPB Q8H-IV [facility] Last Admin: 06/20/19 17:59 Dose: 100 mls/hr Metoprolol Tartrate (Lopressor -) 25 mg PO DAILY [facility] Last Admin: 06/20/19 09:44 Dose: 25 mg Morphine Sulfate (Morphine Sulfate) 2 mg IVPUSH Q6H PRN PRN Reason: PAIN 6-10 Pantoprazole Sodium (Protonix -) 40 mg PO ACBK [facility] Last Admin: 06/20/19 06:52 Dose: 40 mg Potassium Chloride (K-Dur -) 20 meq PO BID [facility] Last Admin: 06/20/19 09:43 Dose: 20 meq Ranolazine (Ranexa -) 1,000 mg PO BID [facility] Last Admin: 06/20/19 09:43 Dose: 1,000 mg Tamsulosin HCl (Flomax -) 0.4 mg PO DAILY@0830 [facility] Last Admin: 06/20/19 09:44 Dose: 0.4 mg - Objective Vital Signs: Vital Signs Temperature 97.6 F 06/20/19 18:00 Pulse Rate 72 06/20/19 18:00 Respiratory Rate 18 06/20/19 18:00 Blood Pressure 118/59 L 06/20/19 18:00 O2 Sat by Pulse Oximetry (%) 99 06/20/19 09:00 Eyes: Yes: WNL HENT: Yes: WNL Neck: Yes: WNL, Supple Cardiovascular: Yes: WNL, Regular Rate and Rhythm Respiratory: Yes: WNL, Regular, CTA Bilaterally Gastrointestinal: Yes: WNL, Normal Bowel Sounds, Soft, Abdomen, Obese Extremities: Yes: WNL Labs: CBC, BMP 06/20/19 07:00 06/20/19 07:00 INR, PTT INR 3.67 (0.83-1.09) H 06/20/19 07:00 Problem List - Problems (1) Near syncope Assessment/Plan: Tele has not shown an arrhythmia Await echo As per cardio Code(s): R55 - SYNCOPE AND COLLAPSE (2) CHF (congestive heart failure) Assessment/Plan: Cont lasix monitor electrolytes and replace K+ Code(s): I50.9 - HEART FAILURE, UNSPECIFIED (3) Cellulitis Assessment/Plan: LUE cellulitis improved Cont cefazolin ID consult noted BC remain negative Doppler of LUE negative for DVT Code(s): L03.90 - CELLULITIS, UNSPECIFIED Qualifiers: Site of cellulitis: unspecified site Qualified Code(s): L03.90 - Cellulitis , unspecified (4) Fall at home Assessment/Plan: S/P Rt 4th and Rt 5th rib fractures Scapular FX As per ortho no surgical intervention Will start PT Code(s): W19.XXXA - UNSPECIFIED FALL, INITIAL ENCOUNTER; Y92.009 - UNSP PLACE IN UNSP NON-INSTITUT (PRIVATE) RESIDENCE PLACE (5) HTN (hypertension) Assessment/Plan: BP stable Cont metoprolol Code(s): I10 - ESSENTIAL (PRIMARY) HYPERTENSION (6) BPH (benign prostatic hyperplasia) Assessment/Plan: Cont flomax Code(s): N40.0 - BENIGN PROSTATIC HYPERPLASIA WITHOUT LOWER URINRY TRACT SYMP (7) GERD (gastroesophageal reflux disease) Assessment/Plan: Cont GERD Code(s): K21.9 - GASTRO-ESOPHAGEAL REFLUX DISEASE WITHOUT ESOPHAGITIS (8) CAD (coronary artery disease) Code(s): I25.10 - ATHSCL HEART DISEASE OF [place] CORONARY ARTERY W/O ANG PCTRS (9) Supratherapeutic INR Assessment/Plan: PT/INR elevated Cont to monitor Restart coumadin once it is 2.5-3.5 Code(s): R79.1 - ABNORMAL COAGULATION PROFILE (10) HLD (hyperlipidemia) Assessment/Plan: Cont lipitor Code(s): E78.5 - HYPERLIPIDEMIA, UNSPECIFIED (11) Pacemaker Code(s): Z95.0 - PRESENCE OF CARDIAC PACEMAKER (12) Altered mental status Assessment/Plan: ? Repeat CT scan head showed chronic lt infarct Neuro consult Code(s): R41.82 - ALTERED MENTAL STATUS, UNSPECIFIED
[2019-06-20] MEDS: ATORVASTATIN CA 20 MG TABLET (FP) PO SCH (21:27)
[2019-06-20] MEDS: MORPHINE SULFATE 2 MG/ML VIAL IVPUSH PRN (22:35)
[2019-06-21] MEDS ORDERED: ceFAZolin SODIUM 1 GM VIAL ONE ×3 (01:43→17:26)
[2019-06-21] MEDS ORDERED: DEXTROSE 5%-WATER - 50 ML IVPB ONE ×3 (01:43→17:26)
[2019-06-21] MEDS: CEFAZOLIN 1 GM in DEXTROSE 5%-WATER - 50 ML IVPB SCH ×3 (01:45→17:36)
[2019-06-21] MEDS: PANTOPRAZOLE 40 MG TABLET (FP) PO SCH (06:04)
[2019-06-21 06:54] LABS: BASO % 0.2 % (0-2.0); EOS % 2.2 % (0-4.5); HEMOGLOBIN 9.4 GM/dL (11.7-16.9); LYMPH % 17.7 % (8-40); MCH 28.2 pg (25.7-33.7); MCHC 33.7 g/dl (32.0-35.9); MEAN CELL VOLUME 83.7 fl (80-96); MEAN PLT VOLUME 8.8 fl (7.5-11.1); MONO % 7.9 % (3.8-10.2); PLATELET COUNT 166 K/MM3 (134-434); RBC 3.35 M/mm3 (4.00-5.60); RDW 16.3 % (11.9-15.9); WHITE BLOOD COUNT 5.8 K/mm3 (4.0-10.0)
[2019-06-21 07:07] LABS: INR 2.15 (0.83-1.09); PROTHROMBIN TIME (PATIENT) 25.6 SEC (9.7-13.0)
[2019-06-21 07:25] LABS: ALBUMIN 2.7 g/dl (3.4-5.0); BILIRUBIN,TOTAL 0.6 mg/dL (0.2-1); BLOOD UREA NITROGEN 19.7 mg/dL (7-18); CALCIUM 8.3 mg/dL (8.5-10.1); POTASSIUM 3.1 mmol/L (3.5-5.1); TOT PROT 5.1 g/dl (6.4-8.2)
[2019-06-21] MEDS: TAMSULOSIN HCL 0.4 MG CAP PO SCH (08:51)
[2019-06-21] MEDS: KCL 10 MEQ IVPB 10 MEQ/100 ML INFUS.BAG IVPB SCH ×3 (08:51→13:56)
[2019-06-21] MEDS: FUROSEMIDE 20 MG TABLET (FP) PO SCH (09:13)
[2019-06-21] MEDS: METOPROLOL TARTRATE 25 MG TABLET (FP) PO SCH (09:13)
[2019-06-21] MEDS: RANOLAZINE E.R. 1,000 MG TABLET (FP) PO SCH ×2 (09:13→21:32)
[2019-06-21] MEDS: POTASSIUM CHLORIDE TABS 20 MEQ TABLET.ER (FP) PO SCH (09:14)
[2019-06-21] MEDS: MORPHINE SULFATE 2 MG/ML VIAL IVPUSH PRN (10:30)
--- NOTE | 2019-06-21 10:51 | PN ---
Progress Note (short form) - Note Progress Note: s: no cp sob palps dizzy o: Vital Signs Period Temp Pulse Resp BP Sys/Lal Pulse Ox Last 24 Hr 97.6 F-99.3 F 64-88 18-18 107-131/51-59 99 nad no jvd rrr mech valve click no mrg cta bl nl eff aao3 no le e/c/c abd nt nd pos bs no jaundice diaphoresis Current Medications Generic Name Dose Route Start Last Admin Trade Name Freq PRN Reason Stop Dose Admin Atorvastatin Calcium 20 mg 06/20/19 22:00 06/20/19 21:27 Lipitor - PO 20 mg HS CAROL Administration Furosemide 60 mg 06/20/19 10:00 06/21/19 09:13 Lasix - PO 60 mg DAILY [facility]OL Administration Cefazolin Sodium 1 gm/ 50 mls @ 100 mls/hr 06/20/19 10:00 06/21/19 10:28 Dextrose IVPB 100 mls/hr Q8H-IV CAROL Administration Potassium Chloride 10 meq in 100 mls @ 100 mls/hr 06/21/19 08:45 06/21/19 08: 51 Potassium Chloride 10 Meq Premix Ivpb - IVPB 06/21/19 11:44 100 mls/hr Q1H CAROL Administration Metoprolol Tartrate 25 mg 06/20/19 10:00 06/21/19 09:13 Lopressor - PO 25 mg DAILY CAROL Administration Morphine Sulfate 2 mg 06/20/19 20:00 06/21/19 10:30 Morphine Sulfate IVPUSH 2 mg Q6H PRN Administration PAIN 6-10 Pantoprazole Sodium 40 mg 06/20/19 07:00 06/21/19 06:04 Protonix - PO 40 mg ACBK CAROL Administration Potassium Chloride 20 meq 06/20/19 10:00 06/21/19 09:14 K-Dur - PO 20 meq BID CAROL Administration Ranolazine 1,000 mg 06/20/19 10:00 06/21/19 09:13 Ranexa - PO 1,000 mg BID CAROL Administration Tamsulosin HCl 0.4 mg 06/20/19 08:30 06/21/19 08:51 Flomax - PO 0.4 mg DAILY@0830 [facility] Administration Warfarin Sodium 3 mg 06/21/19 18:00 Coumadin - PO DAILY@1800 CAROL CBC, BMP 06/21/19 05:48 06/21/19 05:48 tele: sr, as-vp strategy ecg: sr, as-vp strategy ct chest: no chf, right rib and scapula fx a/p: 88 m hx cad s/p pci, cabg, mech avr, ppm, chf, here s/p fall. presyncope, fall: -no signs acs, chf -pacemaker with nl fcn on tele -check echo, monitor tele, check ortho vitals -neuro eval cad: -no signs acs -cont statin, ranexa, bb [facility] avr: -continue coumadin per INR ppm: -pacemaker with nl fcn on ecg/tele chronic chf: -check echo -vol stable, cont po lasix
--- NOTE | 2019-06-21 11:30 | CON.NEURO ---
Consult - History of Present Illness History of Present Illness: Neurology coverage for DR CARMONA 88 y/o man with a PMHx of CAD s/p CABG, Stents x6, CHF, AVR/PPM Valve Replacement on AC, GERD, BPH. Who presents to the ED with an unwitnessed fall on 06/18/19; and generalized weakness; states he felt lightheaded just prior. was c/o pain on his back and left side. he was evaluated at [facility] [place] , had cxr which was reportedly negative and discharged home. since then, his daughter noted that he had left arm redness and swelling, pain worse with movement, right flank and right shoulder pain. Per pts daughter he did have an injection in that left arm [address] Hunt. he denies change to his mental status. Patient denies fever or chills, CP, palpitations, AP, N/V/D. ortho- + nondisplaced FX R scapula, no intervention CT HD : atrophy, chronic L BG infarct - Past Medical History Cardio/Vascular: Yes: CAD, CHF Gastrointestinal: Yes: GERD Renal/: Yes: BPH - Past Surgical History Past Surgical History: Yes: CABG, Permanent Pacemaker, Valve Replacement - Alcohol/Substance Use Hx Alcohol Use: No History of Substance Use: reports: None - Smoking History Smoking history: Unknown if ever smoked Have you smoked in the past 12 months: No - Social History ADL: Family Assistance History of Recent Travel: No Home Medications - Allergies Allergies/Adverse Reactions: Allergies Allergy/AdvReac Type Severity Reaction Status Date / Time No Known Allergies Allergy Verified 06/19/19 16:43 - Home Medications Home Medications: Ambulatory Orders Alendronate Sodium [Binosto] 70 mg PO WEEKLY 06/19/19 Atorvastatin Calcium [Lipitor] 20 mg PO HS 06/19/19 Esomeprazole Magnesium 40 mg PO DAILY 06/19/19 Furosemide [Lasix -] 60 mg PO DAILY 06/19/19 Metoprolol Tartrate [Lopressor -] 25 mg PO DAILY 06/19/19 Potassium Chloride 20 meq PO BID 06/19/19 Ranolazine [Ranexa -] 1,000 mg PO BID 06/19/19 Tamsulosin HCl [Flomax] 0.4 mg PO DAILY 06/19/19 Warfarin Na [Coumadin] 3 mg PO DAILY 06/19/19 Physical Exam-Neuro Vital Signs: Vital Signs Temperature 97.7 F 06/21/19 09:00 Pulse Rate 70 06/21/19 09:00 Respiratory Rate 18 06/21/19 09:00 Blood Pressure 129/59 L 06/21/19 09:00 O2 Sat by Pulse Oximetry (%) 99 06/20/19 21:00 Labs: CBC, BMP 06/21/19 05:48 06/21/19 05:48 INR, PTT INR 2.15 (0.83-1.09) H 06/21/19 05:48 - Neuro Exam Level Of Consciousness: Yes: Alert (awake, conversive, EOMI, no facial, R arm in sling , distally 5/5 RUE/LUE/BL LE , L plantar up ) Problem List - Problems (1) Cellulitis Code(s): L03.90 - CELLULITIS, UNSPECIFIED Qualifiers: Site of cellulitis: unspecified site Qualified Code(s): L03.90 - Cellulitis , unspecified (2) Near syncope Code(s): R55 - SYNCOPE AND COLLAPSE (3) Scapula fracture Code(s): S42.109A - FRACTURE OF UNSP PART OF SCAPULA, UNSP SHOULDER, INIT Qualifiers: Encounter type: initial encounter Scapula location: unspecified part of scapula Fracture type: closed Laterality: right Qualified Code(s): S42.101A - Fracture of unspecified part of scapula, right shoulder, initial encounter for closed fracture Assessment/Plan 88 y/o man with a PMHx of CAD s/p CABG, Stents x6, CHF, AVR/PPM Valve Replacement on AC, GERD, BPH. Who presents to the ED with an unwitnessed fall on 06/18/19; and generalized weakness; states he felt lightheaded just prior. was c/o pain on his back and left side. he was evaluated at [facility] [place] , had cxr which was reportedly negative and discharged home. since then, his daughter noted that he had left arm redness and swelling, pain worse with movement, right flank and right shoulder pain. Per pts daughter he did have an injection in that left arm [address] Hunt. She denies change to his mental status. Patient denies fever or chills, CP, palpitations, AP, N/V/D. CT HD : atrophy, chronic L BG infarct AP : multiple cardiac RF on AC , s/p fall, with scapular FX , possible L arm cellulitis neurlogically appears at baseline, no new evidence of cerebral ischemic event can continue AC continue ABX will need rehab neurology Sign off DR MCGEE
[2019-06-21] MEDS: ACETAMINOPHEN 325 MG TABLET (FP) PO PRN ×2 (15:10→20:49)
[2019-06-21] MEDS ORDERED: WARFARIN NA 3 MG TABLET PO SCH (18:00)
[2019-06-21 20:18] LABS: BLOOD UREA NITROGEN 24.8 mg/dL (7-18); CALCIUM 8.1 mg/dL (8.5-10.1); CREATININE 1.1 mg/dL (0.55-1.3); POTASSIUM 3.2 mmol/L (3.5-5.1)
[2019-06-21] MEDS: ATORVASTATIN CA 20 MG TABLET (FP) PO SCH (21:32)
[2019-06-21] MEDS: oxyCODONE HCL 5 MG TABLET PO PRN (21:32)
[2019-06-21] MEDS: DOCUSATE SODIUM 100 MG CAPSULE (FP) PO SCH ×2 (21:34)
--- NOTE | 2019-06-21 23:36 | PN ---
Progress Note, Physician History of Present Illness: Pt as per family is still having intermittent altered mental status wc again is happening mostly at night - Current Medication List Current Medications: Active Medications Acetaminophen (Tylenol -) 650 mg PO Q6H PRN PRN Reason: PAIN LEVEL 1 - 3 Last Admin: 06/21/19 20:49 Dose: 650 mg Atorvastatin Calcium (Lipitor -) 20 mg PO HS [facility] Last Admin: 06/21/19 21:32 Dose: 20 mg Docusate Sodium (Colace -) 100 mg PO BID [facility] Last Admin: 06/21/19 21:34 Dose: 100 mg Furosemide (Lasix -) 60 mg PO DAILY [facility] Last Admin: 06/21/19 09:13 Dose: 60 mg Cefazolin Sodium 1 gm/ (Dextrose) 50 mls @ 100 mls/hr IVPB Q8H-IV [facility] Last Admin: 06/21/19 17:36 Dose: 100 mls/hr Metoprolol Tartrate (Lopressor -) 25 mg PO DAILY [facility] Last Admin: 06/21/19 09:13 Dose: 25 mg Oxycodone HCl (Roxicodone -) 5 mg PO Q8H PRN PRN Reason: pain level 4-10 Last Admin: 06/21/19 21:32 Dose: 5 mg Pantoprazole Sodium (Protonix -) 40 mg PO ACBK [facility] Last Admin: 06/21/19 06:04 Dose: 40 mg Ranolazine (Ranexa -) 1,000 mg PO BID [facility] Last Admin: 06/21/19 21:32 Dose: 1,000 mg Tamsulosin HCl (Flomax -) 0.4 mg PO DAILY@0830 [facility] Last Admin: 06/21/19 08:51 Dose: 0.4 mg Warfarin Sodium (Coumadin -) 3 mg PO DAILY@1800 [facility] Last Admin: 06/21/19 17:37 Dose: 3 mg - Objective Vital Signs: Vital Signs Temperature 98.3 F 06/21/19 18:00 Pulse Rate 73 06/21/19 18:00 Respiratory Rate 18 06/21/19 18:00 Blood Pressure 108/52 L 06/21/19 18:00 O2 Sat by Pulse Oximetry (%) 99 06/21/19 09:00 Constitutional: Yes: Well Nourished HENT: Yes: WNL Neck: Yes: WNL, Supple Cardiovascular: Yes: WNL, Regular Rate and Rhythm Respiratory: Yes: WNL, Regular, CTA Bilaterally Gastrointestinal: Yes: WNL, Normal Bowel Sounds, Soft Extremities: Yes: WNL Edema: No Neurological: Yes: WNL, Alert, Oriented ...Motor Strength: WNL Labs: CBC, BMP 06/21/19 05:48 06/21/19 19:25 INR, PTT INR 2.15 (0.83-1.09) H 06/21/19 05:48 Problem List - Problems (1) Altered mental status Assessment/Plan: ? Repeat CT scan head showed chronic lt infarct Neuro consult noted ?Due to opoids wc are needed for pain management Code(s): R41.82 - ALTERED MENTAL STATUS, UNSPECIFIED (2) Near syncope Assessment/Plan: Tele has not shown any arrhythmia Await echo As per cardio Code(s): R55 - SYNCOPE AND COLLAPSE (3) CHF (congestive heart failure) Assessment/Plan: Cont lasix monitor electrolytes and replace K+ Code(s): I50.9 - HEART FAILURE, UNSPECIFIED (4) Cellulitis Assessment/Plan: LUE cellulitis improved Cont cefazolin ID consult noted BC remain negative Doppler of LUE negative for DVT Code(s): L03.90 - CELLULITIS, UNSPECIFIED Qualifiers: Site of cellulitis: unspecified site Qualified Code(s): L03.90 - Cellulitis , unspecified (5) Fall at home Assessment/Plan: S/P Rt 4th and Rt 5th rib fractures Scapular FX As per ortho no surgical intervention Will start PT Pt still w/ pain Will dc morphine and try oxycodone to see if it is affecting MS Pt is on coumadin and therefore cannot use NSAIDS Start colace for constipation Code(s): W19.XXXA - UNSPECIFIED FALL, INITIAL ENCOUNTER; Y92.009 - UNSP PLACE IN UNSP NON-INSTITUT (PRIVATE) RESIDENCE PLACE (6) HTN (hypertension) Assessment/Plan: BP stable Cont metoprolol Code(s): I10 - ESSENTIAL (PRIMARY) HYPERTENSION (7) BPH (benign prostatic hyperplasia) Assessment/Plan: Cont flomax Code(s): N40.0 - BENIGN PROSTATIC HYPERPLASIA WITHOUT LOWER URINRY TRACT SYMP (8) GERD (gastroesophageal reflux disease) Assessment/Plan: Cont GERD Code(s): K21.9 - GASTRO-ESOPHAGEAL REFLUX DISEASE WITHOUT ESOPHAGITIS (9) CAD (coronary artery disease) Code(s): I25.10 - ATHSCL HEART DISEASE OF [place] CORONARY ARTERY W/O ANG PCTRS (10) Supratherapeutic INR Assessment/Plan: PT/INR is now normal Cont to monitor Coumadin restarted Code(s): R79.1 - ABNORMAL COAGULATION PROFILE (11) HLD (hyperlipidemia) Assessment/Plan: Cont lipitor Code(s): E78.5 - HYPERLIPIDEMIA, UNSPECIFIED (12) Pacemaker Code(s): Z95.0 - PRESENCE OF CARDIAC PACEMAKER
[2019-06-21] MEDS ORDERED: POTASSIUM CHLORIDE TABS 20 MEQ TABLET.ER (FP) PO ONE (23:37)
[2019-06-22] MEDS ORDERED: ceFAZolin SODIUM 1 GM VIAL ONE ×3 (01:30→17:10)
[2019-06-22] MEDS ORDERED: DEXTROSE 5%-WATER - 50 ML IVPB ONE ×3 (01:30→17:10)
[2019-06-22] MEDS: CEFAZOLIN 1 GM in DEXTROSE 5%-WATER - 50 ML IVPB SCH ×3 (01:38→18:11)
[2019-06-22 06:18] LABS: BASO % 0.3 % (0-2.0); EOS % 2.2 % (0-4.5); HEMATOCRIT 28.9 % (35.4-49); HEMOGLOBIN 9.7 GM/dL (11.7-16.9); MCH 28.1 pg (25.7-33.7); MCHC 33.6 g/dl (32.0-35.9); MEAN CELL VOLUME 83.5 fl (80-96); MEAN PLT VOLUME 8.4 fl (7.5-11.1); MONO % 8.6 % (3.8-10.2); NEUT % 70.9 % (42.8-82.8); PLATELET COUNT 180 K/MM3 (134-434); RBC 3.46 M/mm3 (4.00-5.60); RDW 16.9 % (11.9-15.9); WHITE BLOOD COUNT 5.7 K/mm3 (4.0-10.0)
[2019-06-22] MEDS: PANTOPRAZOLE 40 MG TABLET (FP) PO SCH (06:27)
[2019-06-22 06:33] LABS: INR 2.13 (0.83-1.09); PROTHROMBIN TIME (PATIENT) 25.3 SEC (9.7-13.0)
[2019-06-22 06:37] LABS: ALBUMIN 2.6 g/dl (3.4-5.0); BILIRUBIN,TOTAL 0.6 mg/dL (0.2-1); CALCIUM 8.3 mg/dL (8.5-10.1); POTASSIUM 3.6 mmol/L (3.5-5.1); TOT PROT 5.2 g/dl (6.4-8.2)
[2019-06-22] MEDS: RANOLAZINE E.R. 1,000 MG TABLET (FP) PO SCH ×2 (09:14→21:58)
[2019-06-22] MEDS: TAMSULOSIN HCL 0.4 MG CAP PO SCH (09:14)
[2019-06-22] MEDS: DOCUSATE SODIUM 100 MG CAPSULE (FP) PO SCH ×2 (09:14→21:58)
[2019-06-22] MEDS: METOPROLOL TARTRATE 25 MG TABLET (FP) PO SCH (09:24)
[2019-06-22] MEDS: FUROSEMIDE 20 MG TABLET (FP) PO SCH (09:25)
--- NOTE | 2019-06-22 10:50 | PN ---
Progress Note (short form) - Note Progress Note: s: no cp sob palps dizzy o: Vital Signs Period Temp Pulse Resp BP Sys/Lal Pulse Ox Last 24 Hr 97.6 F-98.9 F 63-76 18-18 108-142/52-70 95 nad no jvd rrr mech valve click no mrg cta bl nl eff aao3 no le e/c/c abd nt nd pos bs no jaundice diaphoresis Current Medications Generic Name Dose Route Start Last Admin Trade Name Freq PRN Reason Stop Dose Admin Acetaminophen 650 mg 06/21/19 14:06 06/21/19 20:49 Tylenol - PO 650 mg Q6H PRN Administration PAIN LEVEL 1 - 3 Atorvastatin Calcium 20 mg 06/20/19 22:00 06/21/19 21:32 Lipitor - PO 20 mg HS CAROL Administration Docusate Sodium 100 mg 06/21/19 19:15 06/22/19 09:14 Colace - PO 100 mg BID CAROL Administration Furosemide 60 mg 06/20/19 10:00 06/22/19 09:25 Lasix - PO 60 mg DAILY [facility]OL Administration Cefazolin Sodium 1 gm/ 50 mls @ 100 mls/hr 06/20/19 10:00 06/22/19 09:13 Dextrose IVPB 100 mls/hr Q8H-IV CAROL Administration Metoprolol Tartrate 25 mg 06/20/19 10:00 06/22/19 09:24 Lopressor - PO 25 mg DAILY [facility]OL Administration Oxycodone HCl 5 mg 06/21/19 21:02 06/21/19 21:32 Roxicodone - PO 5 mg Q8H PRN Administration pain level 4-10 Pantoprazole Sodium 40 mg 06/20/19 07:00 06/22/19 06:27 Protonix - PO 40 mg ACBK [facility]OL Administration Ranolazine 1,000 mg 06/20/19 10:00 06/22/19 09:14 Ranexa - PO 1,000 mg BID CAROL Administration Tamsulosin HCl 0.4 mg 06/20/19 08:30 06/22/19 09:14 Flomax - PO 0.4 mg DAILY@0830 CAROL Administration Warfarin Sodium 3 mg 06/21/19 18:00 06/21/19 17:37 Coumadin - PO 3 mg DAILY@1800 CAROL Administration CBC, BMP 06/22/19 05:20 06/22/19 05:20 tele: sr, ap-vp securities, as-vp securities ecg: sr, as-vp securities ct chest: no chf, right rib and scapula fx a/p: 88 m hx cad s/p pci, cabg, mech avr, ppm, chf, here s/p fall. presyncope, fall: -no signs acs, chf -pacemaker with nl fcn on tele -check echo, monitor tele, check ortho vitals -neuro eval cad: -no signs acs -cont statin, ranexa, bb mech avr: -continue coumadin per INR ppm: -pacemaker with nl fcn on ecg/tele chronic chf: -check echo -vol stable, cont po lasix UE cellulitis: -abx per ID
[2019-06-22] MEDS: oxyCODONE HCL 5 MG TABLET PO PRN (13:36)
--- NOTE | 2019-06-22 17:55 | PN ---
Progress Note, Physician History of Present Illness: No new complaints - Current Medication List Current Medications: Active Medications Acetaminophen (Tylenol -) 650 mg PO Q6H PRN PRN Reason: PAIN LEVEL 1 - 3 Last Admin: 06/21/19 20:49 Dose: 650 mg Atorvastatin Calcium (Lipitor -) 20 mg PO HS [facility] Last Admin: 06/21/19 21:32 Dose: 20 mg Docusate Sodium (Colace -) 100 mg PO BID [facility] Last Admin: 06/22/19 09:14 Dose: 100 mg Furosemide (Lasix -) 60 mg PO DAILY [facility] Last Admin: 06/22/19 09:25 Dose: 60 mg Cefazolin Sodium 1 gm/ (Dextrose) 50 mls @ 100 mls/hr IVPB Q8H-IV [facility] Last Admin: 06/22/19 09:13 Dose: 100 mls/hr Metoprolol Tartrate (Lopressor -) 25 mg PO DAILY [facility] Last Admin: 06/22/19 09:24 Dose: 25 mg Oxycodone HCl (Roxicodone -) 5 mg PO Q8H PRN PRN Reason: pain level 4-10 Last Admin: 06/22/19 13:36 Dose: 5 mg Pantoprazole Sodium (Protonix -) 40 mg PO ACBK [facility] Last Admin: 06/22/19 06:27 Dose: 40 mg Ranolazine (Ranexa -) 1,000 mg PO BID [facility] Last Admin: 06/22/19 09:14 Dose: 1,000 mg Tamsulosin HCl (Flomax -) 0.4 mg PO DAILY@0830 [facility] Last Admin: 06/22/19 09:14 Dose: 0.4 mg Warfarin Sodium (Coumadin -) 5 mg PO DAILY@1800 [facility] - Objective Vital Signs: Vital Signs Temperature 98.4 F 06/22/19 14:22 Pulse Rate 67 06/22/19 14:23 Respiratory Rate 20 06/22/19 14:22 Blood Pressure 112/57 L 06/22/19 14:23 O2 Sat by Pulse Oximetry (%) 96 06/22/19 09:00 Constitutional: Yes: Well Nourished HENT: Yes: WNL Neck: Yes: WNL, Supple Cardiovascular: Yes: WNL, Regular Rate and Rhythm Respiratory: Yes: WNL, Regular, CTA Bilaterally Gastrointestinal: Yes: WNL, Normal Bowel Sounds, Soft, Abdomen, Obese Edema: No Labs: CBC, BMP 06/22/19 05:20 06/22/19 05:20 INR, PTT INR 2.13 (0.83-1.09) H 06/22/19 05:20 Problem List - Problems (1) Altered mental status Assessment/Plan: ? Repeat CT scan head showed chronic lt infarct Neuro consult noted ?Due to opoids wc are needed for pain management Improvement after dc'ing morphine DC planning to STR Code(s): R41.82 - ALTERED MENTAL STATUS, UNSPECIFIED (2) Near syncope Assessment/Plan: Tele has not shown any arrhythmia Await echo As per cardio Code(s): R55 - SYNCOPE AND COLLAPSE (3) CHF (congestive heart failure) Assessment/Plan: Cont lasix monitor electrolytes and replace K+ Code(s): I50.9 - HEART FAILURE, UNSPECIFIED (4) Cellulitis Assessment/Plan: LUE cellulitis improved Cont cefazolin ID consult noted BC remain negative Doppler of LUE negative for DVT Code(s): L03.90 - CELLULITIS, UNSPECIFIED Qualifiers: Site of cellulitis: unspecified site Qualified Code(s): L03.90 - Cellulitis , unspecified (5) Fall at home Assessment/Plan: S/P Rt 4th and Rt 5th rib fractures Scapular FX As per ortho no surgical intervention Cont physical therapy Pt still w/ pain Cont oxycodone Pt is on coumadin and therefore cannot use NSAIDS Colace for constipation Code(s): W19.XXXA - UNSPECIFIED FALL, INITIAL ENCOUNTER; Y92.009 - UNSP PLACE IN [facility]SP [facility]ENCE [facility] (6) HTN (hypertension) Assessment/Plan: BP stable Cont metoprolol Code(s): I10 - ESSENTIAL (PRIMARY) HYPERTENSION (7) BPH (benign prostatic hyperplasia) Assessment/Plan: Cont flomax Code(s): N40.0 - BENIGN PROSTATIC HYPERPLASIA WITHOUT LOWER URINRY TRACT SYMP (8) GERD (gastroesophageal reflux disease) Assessment/Plan: Cont GERD Code(s): K21.9 - GASTRO-ESOPHAGEAL REFLUX DISEASE WITHOUT ESOPHAGITIS (9) CAD (coronary artery disease) Code(s): I25.10 - ATHSCL HEART DISEASE OF [place] CORONARY ARTERY W/O ANG PCTRS (10) Supratherapeutic INR Assessment/Plan: PT/INR in am Cont to monitor Coumadin dose increased to 5mg qd Pt is on coumadin for h/o AVR Code(s): R79.1 - ABNORMAL COAGULATION PROFILE (11) HLD (hyperlipidemia) Assessment/Plan: Cont lipitor Code(s): E78.5 - HYPERLIPIDEMIA, UNSPECIFIED (12) Pacemaker Code(s): Z95.0 - PRESENCE OF CARDIAC PACEMAKER
[2019-06-22] MEDS ORDERED: WARFARIN NA 5 MG TABLET (UD) PO SCH (18:00)
[2019-06-22] MEDS: ACETAMINOPHEN 325 MG TABLET (FP) PO PRN (19:02)
[2019-06-22] MEDS: ATORVASTATIN CA 20 MG TABLET (FP) PO SCH (21:58)
[2019-06-22] MEDS: POTASSIUM CHLORIDE TABS 20 MEQ TABLET.ER (FP) PO SCH (21:58)
[2019-06-23] MEDS ORDERED: ceFAZolin SODIUM 1 GM VIAL ONE ×3 (01:11→17:15)
[2019-06-23] MEDS ORDERED: DEXTROSE 5%-WATER - 50 ML IVPB ONE ×3 (01:11→17:15)
[2019-06-23] MEDS: CEFAZOLIN 1 GM in DEXTROSE 5%-WATER - 50 ML IVPB SCH ×2 (01:16→09:38)
[2019-06-23] MEDS: PANTOPRAZOLE 40 MG TABLET (FP) PO SCH (06:02)
[2019-06-23 07:37] LABS: BASO % 0.3 % (0-2.0); EOS % 2.6 % (0-4.5); HEMATOCRIT 28.4 % (35.4-49); HEMOGLOBIN 9.5 GM/dL (11.7-16.9); LYMPH % 18.3 % (8-40); MCH 28.3 pg (25.7-33.7); MCHC 33.6 g/dl (32.0-35.9); MEAN CELL VOLUME 84.3 fl (80-96); MEAN PLT VOLUME 8.7 fl (7.5-11.1); MONO % 7.4 % (3.8-10.2); NEUT % 71.4 % (42.8-82.8); PLATELET COUNT 173 K/MM3 (134-434); RBC 3.37 M/mm3 (4.00-5.60); RDW 16.8 % (11.9-15.9); WHITE BLOOD COUNT 5.5 K/mm3 (4.0-10.0)
[2019-06-23 07:46] LABS: INR 2.86 (0.83-1.09); PROTHROMBIN TIME (PATIENT) 34.1 SEC (9.7-13.0)
[2019-06-23 07:49] LABS: ALBUMIN 2.6 g/dl (3.4-5.0); BILIRUBIN,TOTAL 0.6 mg/dL (0.2-1); BLOOD UREA NITROGEN 20.6 mg/dL (7-18); CALCIUM 8.5 mg/dL (8.5-10.1); CREATININE 0.9 mg/dL (0.55-1.3); POTASSIUM 3.5 mmol/L (3.5-5.1); TOT PROT 5.1 g/dl (6.4-8.2)
[2019-06-23] MEDS: RANOLAZINE E.R. 1,000 MG TABLET (FP) PO SCH ×2 (09:37→21:36)
[2019-06-23] MEDS: FUROSEMIDE 20 MG TABLET (FP) PO SCH (09:37)
[2019-06-23] MEDS: TAMSULOSIN HCL 0.4 MG CAP PO SCH (09:38)
[2019-06-23] MEDS: POTASSIUM CHLORIDE TABS 20 MEQ TABLET.ER (FP) PO SCH ×2 (09:38→21:36)
[2019-06-23] MEDS: METOPROLOL TARTRATE 25 MG TABLET (FP) PO SCH (09:38)
[2019-06-23] MEDS: DOCUSATE SODIUM 100 MG CAPSULE (FP) PO SCH ×2 (09:38→21:36)
--- NOTE | 2019-06-23 11:42 | PN ---
Progress Note (short form) - Note Progress Note: s: no cp sob palps dizzy o: Vital Signs Period Temp Pulse Resp BP Sys/Lal Pulse Ox Last 24 Hr 97.9 F-98.4 F 67-80 18-20 104-134/49-59 94 nad no jvd rrr mech valve click no mrg cta bl nl eff aao3 no le e/c/c abd nt nd pos bs no jaundice diaphoresis Current Medications Acetaminophen (Tylenol -) 650 mg PO Q6H PRN PRN Reason: PAIN LEVEL 1 - 3 Last Admin: 06/22/19 19:02 Dose: 650 mg Atorvastatin Calcium (Lipitor -) 20 mg PO HS [facility] Last Admin: 06/22/19 21:58 Dose: 20 mg Docusate Sodium (Colace -) 100 mg PO BID [facility] Last Admin: 06/23/19 09:38 Dose: 100 mg Furosemide (Lasix -) 60 mg PO DAILY [facility] Last Admin: 06/23/19 09:37 Dose: 60 mg Cefazolin Sodium 1 gm/ (Dextrose) 50 mls @ 100 mls/hr IVPB Q8H-IV [facility] Last Admin: 06/23/19 09:38 Dose: 100 mls/hr Metoprolol Tartrate (Lopressor -) 25 mg PO DAILY [facility] Last Admin: 06/23/19 09:38 Dose: 25 mg Oxycodone HCl (Roxicodone -) 5 mg PO Q8H PRN PRN Reason: pain level 4-10 Last Admin: 06/22/19 13:36 Dose: 5 mg Pantoprazole Sodium (Protonix -) 40 mg PO ACBK [facility] Last Admin: 06/23/19 06:02 Dose: 40 mg Potassium Chloride (K-Dur -) 20 meq PO BID [facility] Last Admin: 06/23/19 09:38 Dose: 20 meq Ranolazine (Ranexa -) 1,000 mg PO BID [facility] Last Admin: 06/23/19 09:37 Dose: 1,000 mg Tamsulosin HCl (Flomax -) 0.4 mg PO DAILY@0830 [facility] Last Admin: 06/23/19 09:38 Dose: 0.4 mg Warfarin Sodium (Coumadin -) 5 mg PO DAILY@1800 [facility] Last Admin: 06/22/19 18:11 Dose: 5 mg tele: sr, ap-commercial energy auditor, as-commercial energy auditor ecg: sr, as-commercial energy auditor ct chest: no chf, right rib and scapula fx a/p: 88 m hx cad s/p pci, cabg, mech avr, ppm, chf, here s/p fall. presyncope, fall: -no signs acs, chf -pacemaker with nl fcn on tele -check echo, monitor tele, check ortho vitals -neuro eval cad: -no signs acs -cont statin, ranexa, bb mech avr: -continue coumadin per INR ppm: -pacemaker with nl fcn on ecg/tele chronic chf: -check echo -vol stable, cont po lasix UE cellulitis: -abx per ID
[2019-06-23] MEDS: oxyCODONE HCL 5 MG TABLET PO PRN ×2 (12:28→22:45)
--- NOTE | 2019-06-23 12:29 | PN ---
Progress Note (short form) - Note Progress Note: Ortho Pt seen and examined s/p right scapula fx, right rib fx Selected Entries 06/23/19 06:00 Temperature 98.3 F Pulse Rate 71 Respiratory 18 Rate Blood Pressure 134/58 L + ttp, decr rom, nvi a/p PT ROM exercises sling for comfort pain control d/c planning d/w Dr. Leyva
--- NOTE | 2019-06-23 16:21 | ECHO ---
Name: ALESIA BRUNSON Exam:Adult Echocardiogram Study Date: 06/23/2019 02:35 PM Age: 88 yrs Reason For Study: AVR FALL Height: 61 in Weight: 169 lb BSA: 1.8 m2 MMode/2D Measurements & Calculations IVSd: 0.81 cm Ao root diam: 2.6 cm LVIDd: 4.5 cm LVIDs: 2.8 cm LVPWd: 0.77 cm EDV(Teich): 90.2 ml LVOT diam: 2.0 cm ESV(Teich): 28.6 ml Doppler Measurements & Calculations MV E max rafael: 53.3 cm/sec Ao V2 max: 99.1 cm/sec MV A max rafael: 100.2 cm/sec Ao max P.9 mmHg MV E/A: 0.53 Ao V2 mean: 73.9 cm/sec MV dec time: 0.26 sec Ao mean P.4 mmHg Ao V2 VTI: 20.3 cm CHAKA(I,D): 3.1 cm2 CHAKA(V,D): 2.3 cm2 LV V1 max P.2 mmHg SV(LVOT): 63.6 ml LV V1 mean P.4 mmHg LV V1 max: 74.7 cm/sec LV V1 mean: 56.3 cm/sec LV V1 VTI: 21.2 cm TR max rafael: 202.9 cm/sec Med Peak E' Rafael: 3.8 cm/sec TR max P.5 mmHg Med E/e': 14.0 Lat Peak E' Rafael: 5.3 cm/sec Lat E/e': 10.1 Procedure The study was technically limited with all images being suboptimal in quality. Left Ventricle The left ventricle is normal in size. Due to the poor quality of the echocardiogram, an assessment of left ventricular ejection fraction cannot be made. Very poor study. Cannot assess LV systolic function or wall motion. Difficult to assess valves and cannot accurately assess aortic valve. Grade I diastolic dysfu nction, (abnormal relaxation pattern). Right Ventricle There is a pacemaker lead in the right ventricle. The right ventricle is not well visualized. Mitral Valve The mitral valve is not well visualized. Tricuspid Valve The tricuspid valve is not well visualized. Right ventricular systolic pressure is normal. There is t race tricuspid regurgitation. Aortic Valve There is a mechanical aortic valve. Pulmonic Valve The pulmonic valve is not well visualized. Great Vessels The aortic root is normal size. Interpretation Summary The study was technically limited with all images being suboptimal in quality. Very poor study. Cannot assess LV systolic function or wall motion. Difficult to assess valves and ca nnot accurately assess aortic valve. There is trace tricuspid regurgitation. Right ventricular systolic pressure is normal. MD Indra Woods 06/23/2019 04:20 PM
--- NOTE | 2019-06-23 17:53 | PN ---
Progress Note, Physician History of Present Illness: NO C/O L UE PAIN SWELLING RESOLVED DOPPLER NO DVT - Current Medication List Current Medications: Active Medications Acetaminophen (Tylenol -) 650 mg PO Q6H PRN PRN Reason: PAIN LEVEL 1 - 3 Last Admin: 06/22/19 19:02 Dose: 650 mg Atorvastatin Calcium (Lipitor -) 20 mg PO HS [facility] Last Admin: 06/22/19 21:58 Dose: 20 mg Docusate Sodium (Colace -) 100 mg PO BID [facility] Last Admin: 06/23/19 09:38 Dose: 100 mg Furosemide (Lasix -) 60 mg PO DAILY [facility] Last Admin: 06/23/19 09:37 Dose: 60 mg Metoprolol Tartrate (Lopressor -) 25 mg PO DAILY [facility] Last Admin: 06/23/19 09:38 Dose: 25 mg Oxycodone HCl (Roxicodone -) 5 mg PO Q8H PRN PRN Reason: pain level 4-10 Last Admin: 06/23/19 12:28 Dose: 5 mg Pantoprazole Sodium (Protonix -) 40 mg PO ACBK [facility] Last Admin: 06/23/19 06:02 Dose: 40 mg Potassium Chloride (K-Dur -) 20 meq PO BID [facility] Last Admin: 06/23/19 09:38 Dose: 20 meq Ranolazine (Ranexa -) 1,000 mg PO BID [facility] Last Admin: 06/23/19 09:37 Dose: 1,000 mg Tamsulosin HCl (Flomax -) 0.4 mg PO DAILY@0830 [facility] Last Admin: 06/23/19 09:38 Dose: 0.4 mg Warfarin Sodium (Coumadin -) 3 mg PO DAILY@1800 [facility] - Objective Vital Signs: Vital Signs Temperature 98.1 F 06/23/19 13:32 Pulse Rate 72 06/23/19 15:18 Respiratory Rate 18 06/23/19 13:32 Blood Pressure 137/65 06/23/19 15:18 O2 Sat by Pulse Oximetry (%) 93 L 06/23/19 09:00 Cardiovascular: Yes: Regular Rate and Rhythm, S1, S2 Respiratory: Yes: CTA Bilaterally Gastrointestinal: Yes: Normal Bowel Sounds, Soft. No: Tenderness Extremities: Yes: Other (L UE SWELLING RESOLVED NON TENDER) Labs: CBC, BMP 06/23/19 06:25 06/23/19 06:25 INR, PTT INR 2.86 (0.83-1.09) H 06/23/19 06:25 Assessment/Plan D/C CEFAZOLIN
[2019-06-23] MEDS ORDERED: WARFARIN NA 3 MG TABLET PO SCH (18:00)
--- NOTE | 2019-06-23 20:46 | CONSULT ---
Consult - text type - Consultation Consultation Note: NEUROLOGY FOLLOW-UP: Dr. Mae's coverage consultation greatly appreciated. Seen at the request of Dr. Recinos. This 88 yo man with ASHD, s/p CABG, s/p stent is examined with his at the bedside who aides in translation. Phone discussion had with daughter Cady. She describes 2-3 years of slowly progressive gait dysfunction characterized by flexed, shuffling and unsteadiness requiring walker for 2-3 months. She notes that her is "fine except for his legs" and attributes the gait difficulty to leg weakness. Admitted after fall onto right side with non-displaced humerus without head trauma. No prodromal symptoms or LOC. CT of brain x 2 (reviewed): Mod, chronic diffuse atrophy and microvascular changes. JEAN-PIERRE: S/P CABG and venous harvests. NEURO: Awake, alert, normal mentation and speech according to . CNII-CNXII: Normal without nystagmus. Motor: No drift or tremor. Min cogwheel rigidity with reinforcement. Mild R ankle DF weakness (4/5). Areflexic in legs. Coordination: No FTN dystaxia Sensation: Reduced vibration to knees. Gait: deferred Impression: Multi-focal gait dysfunction with predominant contribution from Lumbosacral spinal stenosis Mild extrapyramidal features suggesting Early Parkinson's Suggest: MRI of LS spine C- Orthostatic BPs PT for gait training with walker Neuro f/u as outpatient Thank you very much, Anton Rizzo MD
[2019-06-23] MEDS: ATORVASTATIN CA 20 MG TABLET (FP) PO SCH (21:36)
--- NOTE | 2019-06-23 21:47 | PN ---
Progress Note, Physician History of Present Illness: No new complaints - Current Medication List Current Medications: Active Medications Acetaminophen (Tylenol -) 650 mg PO Q6H PRN PRN Reason: PAIN LEVEL 1 - 3 Last Admin: 06/22/19 19:02 Dose: 650 mg Atorvastatin Calcium (Lipitor -) 20 mg PO HS [facility] Last Admin: 06/23/19 21:36 Dose: 20 mg Docusate Sodium (Colace -) 100 mg PO BID [facility] Last Admin: 06/23/19 21:36 Dose: 100 mg Furosemide (Lasix -) 60 mg PO DAILY [facility] Last Admin: 06/23/19 09:37 Dose: 60 mg Metoprolol Tartrate (Lopressor -) 25 mg PO DAILY [facility] Last Admin: 06/23/19 09:38 Dose: 25 mg Oxycodone HCl (Roxicodone -) 5 mg PO Q8H PRN PRN Reason: pain level 4-10 Last Admin: 06/23/19 12:28 Dose: 5 mg Pantoprazole Sodium (Protonix -) 40 mg PO ACBK [facility] Last Admin: 06/23/19 06:02 Dose: 40 mg Potassium Chloride (K-Dur -) 20 meq PO BID [facility] Last Admin: 06/23/19 21:36 Dose: 20 meq Ranolazine (Ranexa -) 1,000 mg PO BID [facility] Last Admin: 06/23/19 21:36 Dose: 1,000 mg Tamsulosin HCl (Flomax -) 0.4 mg PO DAILY@0830 [facility] Last Admin: 06/23/19 09:38 Dose: 0.4 mg Warfarin Sodium (Coumadin -) 3 mg PO DAILY@1800 [facility] Last Admin: 06/23/19 17:50 Dose: 3 mg - Objective Vital Signs: Vital Signs Temperature 98.2 F 06/23/19 21:41 Pulse Rate 84 06/23/19 21:41 Respiratory Rate 16 06/23/19 21:41 Blood Pressure 116/60 06/23/19 21:41 O2 Sat by Pulse Oximetry (%) 93 L 06/23/19 09:00 Constitutional: Yes: Well Nourished Neck: Yes: WNL, Supple Cardiovascular: Yes: WNL, Regular Rate and Rhythm Respiratory: Yes: WNL, Regular, CTA Bilaterally Gastrointestinal: Yes: WNL, Normal Bowel Sounds, Soft Extremities: Yes: Other (Rt arm in a sling) Labs: CBC, BMP 06/23/19 06:25 06/23/19 06:25 INR, PTT INR 2.86 (0.83-1.09) H 06/23/19 06:25 Problem List - Problems (1) Altered mental status Assessment/Plan: ?Sundrowning Resolved Repeat CT scan head showed chronic lt infarct Neuro consult noted ?Due to opoids wc are needed for pain management Improvement after dc'ing morphine DC planning to STR Code(s): R41.82 - ALTERED MENTAL STATUS, UNSPECIFIED (2) Near syncope Assessment/Plan: Tele has not shown any arrhythmia DC tele Code(s): R55 - SYNCOPE AND COLLAPSE (3) CHF (congestive heart failure) Assessment/Plan: Cont lasix monitor electrolytes and replace K+ Code(s): I50.9 - HEART FAILURE, UNSPECIFIED (4) Cellulitis Assessment/Plan: LUE cellulitis improved Cont IV cefazolin ID consult noted BC remain negative Doppler of LUE negative for DVT Code(s): L03.90 - CELLULITIS, UNSPECIFIED Qualifiers: Site of cellulitis: unspecified site Qualified Code(s): L03.90 - Cellulitis , unspecified (5) Fall at home Assessment/Plan: S/P Rt 4th and Rt 5th rib fractures Scapular FX As per ortho no surgical intervention Cont physical therapy Pt still w/ pain Cont oxycodone Pt is on coumadin and therefore cannot use NSAIDS Colace for constipation Code(s): W19.XXXA - UNSPECIFIED FALL, INITIAL ENCOUNTER; Y92.009 - UNSP PLACE IN UNSP [facility]ENCE [facility] (6) HTN (hypertension) Assessment/Plan: BP stable Cont metoprolol Code(s): I10 - ESSENTIAL (PRIMARY) HYPERTENSION (7) BPH (benign prostatic hyperplasia) Assessment/Plan: Cont flomax Code(s): N40.0 - BENIGN PROSTATIC HYPERPLASIA WITHOUT LOWER URINRY TRACT SYMP (8) GERD (gastroesophageal reflux disease) Assessment/Plan: Cont GERD Code(s): K21.9 - GASTRO-ESOPHAGEAL REFLUX DISEASE WITHOUT ESOPHAGITIS (9) CAD (coronary artery disease) Code(s): I25.10 - ATHSCL HEART DISEASE OF [place] CORONARY ARTERY W/O ANG PCTRS (10) Supratherapeutic INR Assessment/Plan: PT/INR in am Cont to monitor Coumadin dose increased to 5mg qd Pt is on coumadin for h/o AVR Code(s): R79.1 - ABNORMAL COAGULATION PROFILE (11) HLD (hyperlipidemia) Assessment/Plan: Cont lipitor Code(s): E78.5 - HYPERLIPIDEMIA, UNSPECIFIED (12) Pacemaker Code(s): Z95.0 - PRESENCE OF CARDIAC PACEMAKER
[2019-06-24] MEDS: PANTOPRAZOLE 40 MG TABLET (FP) PO SCH (06:37)
[2019-06-24 08:33] LABS: INR 3.85 (0.83-1.09); PROTHROMBIN TIME (PATIENT) 46.1 SEC (9.7-13.0)
[2019-06-24] MEDS: DOCUSATE SODIUM 100 MG CAPSULE (FP) PO SCH ×2 (09:02→21:04)
[2019-06-24] MEDS: POTASSIUM CHLORIDE TABS 20 MEQ TABLET.ER (FP) PO SCH ×2 (09:02→21:04)
[2019-06-24] MEDS: TAMSULOSIN HCL 0.4 MG CAP PO SCH (09:02)
[2019-06-24] MEDS: METOPROLOL TARTRATE 25 MG TABLET (FP) PO SCH (09:02)
[2019-06-24] MEDS: FUROSEMIDE 20 MG TABLET (FP) PO SCH (09:02)
[2019-06-24] MEDS: RANOLAZINE E.R. 1,000 MG TABLET (FP) PO SCH ×2 (09:02→21:04)
[2019-06-24] MEDS: oxyCODONE HCL 5 MG TABLET PO PRN (10:03)
--- NOTE | 2019-06-24 10:44 | PN ---
Progress Note (short form) - Note Progress Note: s: no cp sob palps dizzy o: Vital Signs Period Temp Pulse Resp BP Sys/Lal Pulse Ox Last 24 Hr 98.1 F-98.9 F 70-84 16-18 104-137/52-82 93 nad no jvd rrr mech valve click no mrg cta bl nl eff aao3 no le e/c/c abd nt nd pos bs no jaundice diaphoresis Current Medications Acetaminophen (Tylenol -) 650 mg PO Q6H PRN PRN Reason: PAIN LEVEL 1 - 3 Last Admin: 06/22/19 19:02 Dose: 650 mg Atorvastatin Calcium (Lipitor -) 20 mg PO HS [facility] Last Admin: 06/23/19 21:36 Dose: 20 mg Docusate Sodium (Colace -) 100 mg PO BID [facility] Last Admin: 06/24/19 09:02 Dose: 100 mg Furosemide (Lasix -) 60 mg PO DAILY [facility] Last Admin: 06/24/19 09:02 Dose: 60 mg Metoprolol Tartrate (Lopressor -) 25 mg PO DAILY [facility] Last Admin: 06/24/19 09:02 Dose: 25 mg Oxycodone HCl (Roxicodone -) 5 mg PO Q8H PRN PRN Reason: pain level 4-10 Last Admin: 06/24/19 10:03 Dose: 5 mg Pantoprazole Sodium (Protonix -) 40 mg PO ACBK [facility] Last Admin: 06/24/19 06:37 Dose: 40 mg Potassium Chloride (K-Dur -) 20 meq PO BID [facility] Last Admin: 06/24/19 09:02 Dose: 20 meq Ranolazine (Ranexa -) 1,000 mg PO BID [facility] Last Admin: 06/24/19 09:02 Dose: 1,000 mg Tamsulosin HCl (Flomax -) 0.4 mg PO DAILY@0830 [facility] Last Admin: 06/24/19 09:02 Dose: 0.4 mg Warfarin Sodium (Coumadin -) 3 mg PO DAILY@1800 [facility] Last Admin: 06/23/19 17:50 Dose: 3 mg tele: sr, ap-vp scientific affairs, as-vp scientific affairs ecg: sr, as-vp scientific affairs ct chest: no chf, right rib and scapula fx a/p: 88 m hx cad s/p pci, cabg, mech avr, ppm, chf, here s/p fall. presyncope, fall: -no signs acs, chf -pacemaker with nl fcn on tele - echo tds, unable to evaluate LV function -neuro eval cad: -no signs acs -cont statin, ranexa, bb mech avr: -continue coumadin per INR ppm: -pacemaker with nl fcn on ecg/tele chronic chf: -check echo -vol stable, cont po lasix UE cellulitis: -abx per ID
[2019-06-24] MEDS: ATORVASTATIN CA 20 MG TABLET (FP) PO SCH (21:04)
--- NOTE | 2019-06-24 21:19 | PN ---
Progress Note, Physician History of Present Illness: No new complaints Mental status at baseline - Current Medication List Current Medications: Active Medications Acetaminophen (Tylenol -) 650 mg PO Q6H PRN PRN Reason: PAIN LEVEL 1 - 3 Last Admin: 06/22/19 19:02 Dose: 650 mg Atorvastatin Calcium (Lipitor -) 20 mg PO HS [facility] Last Admin: 06/24/19 21:04 Dose: 20 mg Docusate Sodium (Colace -) 100 mg PO BID [facility] Last Admin: 06/24/19 21:04 Dose: 100 mg Furosemide (Lasix -) 60 mg PO DAILY [facility] Last Admin: 06/24/19 09:02 Dose: 60 mg Metoprolol Tartrate (Lopressor -) 25 mg PO DAILY [facility] Last Admin: 06/24/19 09:02 Dose: 25 mg Pantoprazole Sodium (Protonix -) 40 mg PO ACBK [facility] Last Admin: 06/24/19 06:37 Dose: 40 mg Potassium Chloride (K-Dur -) 20 meq PO BID [facility] Last Admin: 06/24/19 21:04 Dose: 20 meq Ranolazine (Ranexa -) 1,000 mg PO BID [facility] Last Admin: 06/24/19 21:04 Dose: 1,000 mg Tamsulosin HCl (Flomax -) 0.4 mg PO DAILY@0830 [facility] Last Admin: 06/24/19 09:02 Dose: 0.4 mg Warfarin Sodium (Coumadin -) 3 mg PO DAILY@1800 [facility] Last Admin: 06/23/19 17:50 Dose: 3 mg - Objective Vital Signs: Vital Signs Temperature 98.4 F 06/24/19 18:00 Pulse Rate 70 06/24/19 18:00 Respiratory Rate 18 06/24/19 18:00 Blood Pressure 115/57 L 06/24/19 18:00 O2 Sat by Pulse Oximetry (%) 96 06/24/19 19:27 Constitutional: Yes: Well Nourished Neck: Yes: WNL, Supple Cardiovascular: Yes: WNL, Regular Rate and Rhythm Respiratory: Yes: WNL, Regular, CTA Bilaterally Gastrointestinal: Yes: WNL, Normal Bowel Sounds, Soft, Abdomen, Obese Extremities: Yes: Other (RUE in a sling) Edema: No Labs: CBC, BMP 06/23/19 06:25 06/23/19 06:25 INR, PTT INR 3.85 (0.83-1.09) H 06/24/19 06:34 Problem List - Problems (1) Altered mental status Assessment/Plan: ?Sundrowning Resolved Repeat CT scan head showed chronic lt infarct Neuro consult noted ?Due to opoids wc are needed for pain management Improvement after dc'ing morphine DC planning to STR Code(s): R41.82 - ALTERED MENTAL STATUS, UNSPECIFIED (2) Near syncope Assessment/Plan: Tele has not shown any arrhythmia DC tele Code(s): R55 - SYNCOPE AND COLLAPSE (3) CHF (congestive heart failure) Assessment/Plan: Cont lasix monitor electrolytes and replace K+ Code(s): I50.9 - HEART FAILURE, UNSPECIFIED (4) Cellulitis Assessment/Plan: LUE cellulitis improved Change to po antibxs in am ID consult noted BC remain negative Doppler of LUE negative for DVT Code(s): L03.90 - CELLULITIS, UNSPECIFIED Qualifiers: Site of cellulitis: unspecified site Qualified Code(s): L03.90 - Cellulitis , unspecified (5) Fall at home Assessment/Plan: S/P Rt 4th and Rt 5th rib fractures Scapular FX As per ortho no surgical intervention Cont physical therapy Pt still w/ pain Cont oxycodone Pt is on coumadin and therefore cannot use NSAIDS Colace for constipation Code(s): W19.XXXA - UNSPECIFIED FALL, INITIAL ENCOUNTER; Y92.009 - UNSP PLACE IN UNSP [facility] (6) HTN (hypertension) Assessment/Plan: BP stable Cont metoprolol Code(s): I10 - ESSENTIAL (PRIMARY) HYPERTENSION (7) BPH (benign prostatic hyperplasia) Assessment/Plan: Cont flomax Code(s): N40.0 - BENIGN PROSTATIC HYPERPLASIA WITHOUT LOWER URINRY TRACT SYMP (8) GERD (gastroesophageal reflux disease) Assessment/Plan: Cont GERD Code(s): K21.9 - GASTRO-ESOPHAGEAL REFLUX DISEASE WITHOUT ESOPHAGITIS (9) CAD (coronary artery disease) Code(s): I25.10 - ATHSCL HEART DISEASE OF [place] CORONARY ARTERY W/O ANG PCTRS (10) Supratherapeutic INR Assessment/Plan: PT/INR in am Cont to monitor Hold coumadin today Pt is on coumadin for h/o AVR Code(s): R79.1 - ABNORMAL COAGULATION PROFILE (11) HLD (hyperlipidemia) Assessment/Plan: Cont lipitor Code(s): E78.5 - HYPERLIPIDEMIA, UNSPECIFIED (12) Pacemaker Code(s): Z95.0 - PRESENCE OF CARDIAC PACEMAKER
[2019-06-25] MEDS: PANTOPRAZOLE 40 MG TABLET (FP) PO SCH (06:06)
[2019-06-25 08:35] LABS: INR 3.61 (0.83-1.09); PROTHROMBIN TIME (PATIENT) 43.2 SEC (9.7-13.0)
[2019-06-25 08:59] LABS: ALBUMIN 2.7 g/dl (3.4-5.0); BILIRUBIN,TOTAL 0.6 mg/dL (0.2-1); CALCIUM 8.5 mg/dL (8.5-10.1); CREATININE 0.9 mg/dL (0.55-1.3); POTASSIUM 4.2 mmol/L (3.5-5.1); TOT PROT 5.2 g/dl (6.4-8.2)
[2019-06-25] MEDS: POTASSIUM CHLORIDE TABS 20 MEQ TABLET.ER (FP) PO SCH (09:19)
[2019-06-25] MEDS: METOPROLOL TARTRATE 25 MG TABLET (FP) PO SCH (09:19)
[2019-06-25] MEDS: DOCUSATE SODIUM 100 MG CAPSULE (FP) PO SCH (09:19)
[2019-06-25] MEDS: RANOLAZINE E.R. 1,000 MG TABLET (FP) PO SCH (09:19)
[2019-06-25] MEDS: TAMSULOSIN HCL 0.4 MG CAP PO SCH (09:19)
[2019-06-25] MEDS: FUROSEMIDE 20 MG TABLET (FP) PO SCH (09:23)
--- NOTE | 2019-06-25 11:21 | PN ---
Progress Note (short form) - Note Progress Note: s: no cp sob palps dizzy o: Vital Signs Period Temp Pulse Resp BP Sys/Lal Pulse Ox Last 24 Hr 98.0 F-98.4 F 69-88 18-20 114-150/55-70 96 nad no jvd rrr mech valve click no mrg cta bl nl eff aao3 no le e/c/c abd nt nd pos bs no jaundice diaphoresis Current Medications Generic Name Dose Route Start Last Admin Trade Name Freq PRN Reason Stop Dose Admin Acetaminophen 650 mg 06/21/19 14:06 06/22/19 19:02 Tylenol - PO 650 mg Q6H PRN Administration PAIN LEVEL 1 - 3 Atorvastatin Calcium 20 mg 06/20/19 22:00 06/24/19 21:04 Lipitor - PO 20 mg HS CAROL Administration Docusate Sodium 100 mg 06/21/19 19:15 06/25/19 09:19 Colace - PO 100 mg BID CAROL Administration Furosemide 60 mg 06/20/19 10:00 06/25/19 09:23 Lasix - PO 60 mg DAILY CAROL Administration Metoprolol Tartrate 25 mg 06/20/19 10:00 06/25/19 09:19 Lopressor - PO 25 mg DAILY CAROL Administration Pantoprazole Sodium 40 mg 06/20/19 07:00 06/25/19 06:06 Protonix - PO 40 mg ACBK CAROL Administration Potassium Chloride 20 meq 06/22/19 22:00 06/25/19 09:19 K-Dur - PO 20 meq BID CAROL Administration Ranolazine 1,000 mg 06/20/19 10:00 06/25/19 09:19 Ranexa - PO 1,000 mg BID CAROL Administration Tamsulosin HCl 0.4 mg 06/20/19 08:30 06/25/19 09:19 Flomax - PO 0.4 mg DAILY@0830 CAROL Administration Warfarin Sodium 3 mg 06/23/19 18:00 06/23/19 17:50 Coumadin - PO 3 mg DAILY@1800 CAROL Administration Laboratory Last Values WBC 5.5 K/mm3 (4.0-10.0) 06/23/19 06:25 RBC 3.37 M/mm3 (4.00-5.60) L 06/23/19 06:25 Hgb 9.5 GM/dL (11.7-16.9) L 06/23/19 06:25 Hct 28.4 % (35.4-49) L 06/23/19 06:25 MCV 84.3 fl (80-96) 06/23/19 06:25 MCH 28.3 pg (25.7-33.7) 06/23/19 06:25 MCHC 33.6 g/dl (32.0-35.9) 06/23/19 06:25 RDW 16.8 % (11.9-15.9) H 06/23/19 06:25 Plt Count 173 K/MM3 (134-434) 06/23/19 06:25 MPV 8.7 fl (7.5-11.1) 06/23/19 06:25 Absolute Neuts (auto) 3.9 K/mm3 (1.5-8.0) 06/23/19 06:25 Neutrophils % 71.4 % (42.8-82.8) 06/23/19 06:25 Lymphocytes % 18.3 % (8-40) 06/23/19 06:25 Monocytes % 7.4 % (3.8-10.2) 06/23/19 06:25 Eosinophils % 2.6 % (0-4.5) 06/23/19 06:25 Basophils % 0.3 % (0-2.0) 06/23/19 06:25 Nucleated RBC % 0 % (0-0) 06/23/19 06:25 PT with INR 43.20 SEC (9.7-13.0) H 06/25/19 07:05 INR 3.61 (0.83-1.09) H 06/25/19 07:05 PTT (Actin FS) 49.4 SECONDS (25.2-36.5) H 06/19/19 18:15 VBG pH 7.44 (7.31-7.41) H 06/19/19 18:15 POC VBG pCO2 44.9 mmHg (38-52) 06/19/19 18:15 POC VBG pO2 < 49 mmHg (28-48) H 06/19/19 18:15 VBG HCO3 29.6 mmol/L (23-29) H 06/19/19 18:15 VBG O2 Sat (Ko) 59.4 % (70-80) L 06/19/19 18:15 VBG Base Excess 5.2 meq/l (-2-2) H 06/19/19 18:15 Sodium 141 mmol/L (136-145) 06/25/19 07:05 Potassium 4.2 mmol/L (3.5-5.1) 06/25/19 07:05 Chloride 97 mmol/L (98-107) L 06/25/19 07:05 Carbon Dioxide 34 mmol/L (21-32) H 06/25/19 07:05 Anion Gap 9 MMOL/L (8-16) 06/25/19 07:05 BUN 22.0 mg/dL (7-18) H 06/25/19 07:05 Creatinine 0.9 mg/dL (0.55-1.3) 06/25/19 07:05 Est GFR (CKD-EPI)AfAm 87.46 06/25/19 07:05 Est GFR (CKD-EPI)NonAf 75.46 06/25/19 07:05 Random Glucose 107 mg/dL (74-106) H 06/25/19 07:05 Hemoglobin A1c % 5.2 % (4.2-6.3) 06/20/19 07:00 Lactic Acid 1.3 mmol/L (0.4-2.0) 06/20/19 07:00 Calcium 8.5 mg/dL (8.5-10.1) 06/25/19 07:05 Phosphorus 3.7 mg/dL (2.5-4.9) 06/20/19 07:00 Magnesium 1.7 mg/dL (1.8-2.4) L 06/20/19 07:00 Total Bilirubin 0.6 mg/dL (0.2-1) 06/25/19 07:05 AST 23 U/L (15-37) 06/25/19 07:05 ALT 12 U/L (13-61) L 06/25/19 07:05 Alkaline Phosphatase 59 U/L (45-117) 06/25/19 07:05 Creatine Kinase 421 U/L (26-308) H 06/19/19 18:15 Creatine Kinase Index 1.4 % (0.0-5.0) 06/19/19 18:15 CK-MB (CK-2) 6.2 ng/mL (0.5-3.6) H 06/19/19 18:15 Troponin I < 0.02 ng/ml (0.00-0.05) 06/20/19 07:00 Total Protein 5.2 g/dl (6.4-8.2) L 06/25/19 07:05 Albumin 2.7 g/dl (3.4-5.0) L 06/25/19 07:05 Urine Color Yellow 06/19/19 20:15 Urine Appearance Cloudy 06/19/19 20:15 Urine pH 5.5 (5.0-8.0) 06/19/19 20:15 Ur Specific [place] 1.015 (1.010-1.035) 06/19/19 20:15 Urine Protein Negative (NEGATIVE) 06/19/19 20:15 Urine Glucose (UA) Negative (NEGATIVE) 06/19/19 20:15 Urine Ketones Negative (NEGATIVE) 06/19/19 20:15 Urine Blood Negative (NEGATIVE) 06/19/19 20:15 Urine Nitrite Negative (NEGATIVE) 06/19/19 20:15 Urine Bilirubin Negative (NEGATIVE) 06/19/19 20:15 Urine Urobilinogen 0.2 mg/dL (0.2-1.0) 06/19/19 20:15 Ur Leukocyte Esterase Negative (NEGATIVE) 06/19/19 20:15 Stool Occult Blood Trace (NEGATIVE) 06/19/19 20:33 Blood Type O POSITIVE 06/23/19 08:30 Antibody Screen Negative 06/23/19 08:30 tele: sr, ap-vp [facility], as-vp [facility] ecg: sr, as-vp [facility] ct chest: no chf, right rib and scapula fx a/p: 88 m hx cad s/p [facility]ci[facility], [facility], here s/p fall. presyncope, fall: -no signs acs, chf -pacemaker with nl fcn on tele -echo TDS, could not assess lvef -neuro eval cad: -no signs acs -cont statin, ranexa, [facility] avr: -continue coumadin per INR ppm: -pacemaker with nl fcn on ecg/tele chronic chf: -vol stable, cont po lasix UE cellulitis: -abx per ID cardiac mercdao stable
[2019-06-25 14:24] VITALS: PULSE 75; TEMP 97.7
[2019-06-25 14:29] VITALS: BP 145/72
== END 2019-06-25 18:34 | DRG 184 ==
LOC: JER 16:24 → JERBED 21:28 → J4S 06-20 02:18
PROVIDERS: ADMIT Internal Medicine; ATTEND Internal Medicine
DX: S22.41XA Multiple fractures of ribs, right side, initial encounter for closed fracture (principal); L03.114 Cellulitis of left upper limb; S42.101A Fracture of unspecified part of scapula, right shoulder, initial encounter for closed fracture; I25.10 Atherosclerotic heart disease of native coronary artery without angina pectoris; K21.9 Gastro-esophageal reflux disease without esophagitis; N40.0 Benign prostatic hyperplasia without lower urinary tract symptoms; E66.8 Other obesity; Z68.31 Body mass index [BMI] 31.0-31.9, adult; R55 Syncope and collapse; I11.0 Hypertensive heart disease with heart failure; I50.9 Heart failure, unspecified; R79.1 Abnormal coagulation profile; R41.82 Altered mental status, unspecified; M48.07 Spinal stenosis, lumbosacral region; E78.5 Hyperlipidemia, unspecified; G20 Parkinson's disease; Z95.5 Presence of coronary angioplasty implant and graft; Z95.2 Presence of prosthetic heart valve; Z95.0 Presence of cardiac pacemaker; W18.39XA Other fall on same level, initial encounter; Y92.098 Other place in other non-institutional residence as the place of occurrence of the external cause
CPT/HCPCS: 36415; 70450-TC; 71045-TC-FY; 71260-TC; 72131-TC; 73030-TC-RT-FY; 74177-TC; 80048; 80053; 81003; 82272; 82550; 82553; 82803; 83036; 83605; 83735; 84100; 84484; 85025; 85610; 85730; 86850; 86900; 86901; 87040; 87086; 93005; 93010; 93306-TC; 93971; 94010; 97116-GP; 97162-GP; 99285-25; J0131